=== PATIENT | male | born 1955 | race Caucasian/White ===

== ENCOUNTER 2024-03-25 14:54 | Inpatient (IN) | payer MEDICARE, OTHER ==
[~2024-03-25] VITALS: Ht 167.6 cm; Wt 70.6 kg
[~2024-03-25 14:54] MED LIST: ATEN-60; CEPH-510 PO; HYDR-3547
[2024-03-25 15:26] LABS: Basophils # (auto) 0 10 ^3/uL (0-0.2); Basophils % (auto) 0.2 % (0.0-2.0); Eosinophils # (auto) 0 10 ^3/uL (0-0.8); Hematocrit 41.8 % (41.0-53.0); Lymphocytes # (auto) 0.5 10 ^3/uL (0.4-5.4); Lymphocytes % (auto) 5.4 % (10.0-50.0); Mean Corpuscular Volume 99.9 fL (80.0-100.0); Monocytes # (auto) 0.7 10 ^3/uL (0-1.3); Monocytes % (auto) 7.7 % (0.0-12.0); Neutrophils # (auto) 8.3 10 ^3/uL (1.6-8.6); Neutrophils % (auto) 86.7 % (37.0-80.0); Nucleated Red Blood Cells % 0.2 %; Platelet Count (auto) 298 10^3/uL (140-450); Red Blood Cells 4.19 10^6/uL (4.5-5.90); Red Cell Distribution Width 18.3 % (11.8-14.3); White Blood Cell 9.5 10^3/uL (4.4-10.8)
[2024-03-25 15:32] VITALS: PULSE 63; RESP 15; O2SAT 90
[2024-03-25 15:46] LABS: Alanine Aminotransferase 131 U/L (7-40); Albumin 3.7 g/dL (3.2-4.8); Alkaline Phosphatase 127 U/L (46-116); Anion Gap 15 (5-15); Aspartate Aminotransferase 90 U/L (13-40); BUN/Creatinine Ratio 16.7 (10.0-20.0); Bilirubin, Total 0.3 mg/dL (0.2-1.0); Calcium 8.3 mg/dL (8.7-10.4); Carbon Dioxide 13 mmol/L (20-30); Chloride 109 mmol/L (98-107); Glucose 91 mg/dL (74-106); Potassium 5.2 mmol/L (3.5-5.1); Sodium 137 mmol/L (136-145); Total Protein 5.8 g/dL (5.7-8.2)
[2024-03-25 15:58] LABS: Blood Urea Nitrogen 99 mg/dL (9-23)
[2024-03-25] MEDS: InsuLIN REG 1unit/0.01ml Soln (100units/ml) IV ONE (16:15)
[2024-03-25] MEDS: SODIUM CHLORIDE 0.9% 1,000 ML IV ONE ×2 (16:15→16:25)
[2024-03-25] MEDS: DEXTROSE (50%) 50ML SYRG IV ONE (16:15)
[2024-03-25] MEDS: CALCIUM GLUC 1,000mg/50ml-NS 50 ML IV ONE (16:24)
[2024-03-25] MEDS: cefTRIAXone 1GM/50ML D5W 50 ML IV ONE ×2 (16:24→23:15)
[2024-03-25] MEDS: SODIUM ZIRCONIUM CYCL 10 GM PAK PO ONE (16:25)
[2024-03-25] MEDS: FUROSEMIDE 20 MG/2 ML VIAL IV ONE (16:25)
[2024-03-25] MEDS: ENOXAPARIN SOD 60 MG/0.6 ML SYRINGE SC ONE (16:25)
[2024-03-25] MEDS: SODIUM BICARB 8.4% 50Meq/50ml SYR INJ IV ONE (16:25)
[2024-03-25] MEDS: ALBUTEROL SULF 2.5 MG/0.5ML(0.5%) NEB SOLN NEB ONE (16:32)
[2024-03-25 17:20] LABS: Urine Bacteria None Seen /hpf (None Seen)
[2024-03-25 17:54] LABS: Urine Blood 3+ /uL (Negative); Urine Budding Yeast OCCASIONAL /hpf (None Seen); Urine Clarity Turbid (Clear); Urine Color Yellow (Yellow); Urine Protein, UAD 3+ (Negative); Urine Specific Gravity 1.015 (1.001-1.035); Urine Urobilinogen Normal (Negative); Urine WBC 591 /hpf (0 - 3); Urine WBC Clumps PRESENT /hpf (None Seen)
[2024-03-25 19:10] VITALS: PULSE 57; RESP 18; O2SAT 96
[2024-03-25] MEDS: METOPROLOL TARTRATE 25 MG TAB PO SCH (22:00)
[2024-03-25] MEDS ORDERED: NITROGLYCERIN 0.4 MG SL TAB SL PRN (22:00)
[2024-03-25] MEDS ORDERED: MORPHINE SULFATE INJ 2 MG/ml SYRG IV PRN (22:00)
[2024-03-25] MEDS: ATORVASTATIN 20 MG TAB PO SCH (23:14)
[2024-03-25] MEDS: ALBUMIN 5% 250 ML IV ONE (23:27)
[2024-03-25] MEDS ORDERED: ALBUMIN 5% 50 ML IV ONE (23:30)
[2024-03-26] VITALS (90 sets, daily range): BP systolic 63–145; BP diastolic 46–101; PULSE 51–74; RESP 14–25; TEMP 94.5–99.5; O2SAT 87–100
[2024-03-26] MEDS: DEXTROSE 50% SYRINGE 50 ML IV ONE (04:43)
[2024-03-26] MEDS ORDERED: DEXTROSE (50%) 50ML SYRG IV PRN (06:00)
[2024-03-26] MEDS: FUROSEMIDE 20 MG/2 ML VIAL IV SCH ×2 (06:09→08:46)
[2024-03-26] MEDS: ACCU-CHEK COMFORT CURVE STRIP VI SCH ×2 (06:17→23:50)
[2024-03-26 08:00] LABS: Basophils # (auto) 0 10 ^3/uL (0-0.2); Basophils % (auto) 0.1 % (0.0-2.0); Eosinophils # (auto) 0 10 ^3/uL (0-0.8); Hematocrit 44.1 % (41.0-53.0); Hemoglobin 13.8 g/dL (13.5-17.5); Lymphocytes # (auto) 0.5 10 ^3/uL (0.4-5.4); Lymphocytes % (auto) 3.9 % (10.0-50.0); Mean Corpuscular Hemoglobin 31.1 pg (28.0-32.0); Mean Corpuscular Hgb Conc. 31.2 g/dL (32.0-36.0); Mean Corpuscular Volume 99.6 fL (80.0-100.0); Monocytes # (auto) 0.7 10 ^3/uL (0-1.3); Neutrophils # (auto) 10.9 10 ^3/uL (1.6-8.6); Nucleated Red Blood Cells % 0.4 %; Platelet Count (auto) 324 10^3/uL (140-450); Red Blood Cells 4.43 10^6/uL (4.5-5.90); Red Cell Distribution Width 18.3 % (11.8-14.3); White Blood Cell 12.1 10^3/uL (4.4-10.8)
[2024-03-26 08:24] LABS: Alanine Aminotransferase 153 U/L (7-40); Alkaline Phosphatase 124 U/L (46-116); Anion Gap 14 (5-15); Aspartate Aminotransferase 99 U/L (13-40); BUN/Creatinine Ratio 16.5 (10.0-20.0); Calcium 8.6 mg/dL (8.7-10.4); Carbon Dioxide 17 mmol/L (20-30); Chloride 106 mmol/L (98-107); Glucose 170 mg/dL (74-106); Potassium 5.3 mmol/L (3.5-5.1); Sodium 137 mmol/L (136-145)
[2024-03-26 08:25] LABS: Bilirubin, Total 0.3 mg/dL (0.2-1.0); Total Protein 6.1 g/dL (5.7-8.2)
[2024-03-26 08:28] LABS: Blood Urea Nitrogen 108 mg/dL (9-23)
[2024-03-26] MEDS: ONDANSETRON HCL 4 MG/2 ML VIAL IV PRN (08:39)
[2024-03-26] MEDS: cefTRIAXone 1GM/50ML D5W 50 ML IV SCH (08:39)
[2024-03-26] MEDS: ETOMIDATE (2MG/ML) 20ML VIAL IV ONE ×2 (09:52→09:55)
[2024-03-26] MEDS: ROCURONIUM 10MG/ML 10ML VIAL IV ONE (09:52)
[2024-03-26] MEDS: SUCCINYLCHOLINE CHLORIDE 20 MG/ML 10ML VIAL IV ONE (09:53)
[2024-03-26] MEDS: amLODIPine BESYLATE 5 MG TAB PO SCH (10:00)
[2024-03-26] MEDS: MIDAZOLAM DRIP 50 mg/50mL 50 ML IV ONE (10:01)
[2024-03-26] MEDS: fentaNYL Drip 2500mCg/250mlNS 250 ML IV ONE (10:01)
[2024-03-26] MEDS: ASPirin 81 mg TAB PO SCH (12:01)
[2024-03-26 12:49] LABS: Base Excess -15.9 mmol/L (-2.0-3.0)
[2024-03-26] MEDS: SODIUM BICARB 8.4% 50Meq/50ml SYR Vial IV ONE (13:15)
[2024-03-26] MEDS: MIDAZOLAM DRIP 50 mg/50mL 50 ML IV SCH (13:26)
[2024-03-26] MEDS: fentaNYL Drip 2500mCg/250mlNS 250 ML IV SCH (13:49)
[2024-03-26 14:34] LABS: Base Excess -10.9 mmol/L (-2.0-3.0)
[2024-03-26] MEDS ORDERED: MEROPENEM 1GM IVPB 50 ML IV ONE (15:15)
[2024-03-26] MEDS: BUMETANIDE INJECTION 25 MG in GIVE UN-DILUTED 0 ML IV SCH (15:35)
[2024-03-26 16:58] LABS: INR 1.21 (0.9-1.15); Partial Thromboplastin Time 24.4 SEC (24.5-34.5); Prothrombin Time 12.6 sec (9.3-11.8)
[2024-03-26 17:54] LABS: Base Excess -10.3 mmol/L (-2.0-3.0)
[2024-03-26 18:21] LABS: Sodium Urine 93 mmol/L (40-220)
[2024-03-26 18:29] LABS: Amphetamine Screen, Urine Pos (NEGATIVE); Barbiturate Scree,Urine Neg (NEGATIVE); Benzodiazephine Screen, Urine Pos (NEGATIVE); Cocaine Screen, Urine Neg (NEGATIVE)
[2024-03-26 18:30] LABS: Cannabinoid Screen, Urine Neg (NEGATIVE); Creatinine, Urine 50.72 mg/dL (30.0-125.0); Opiate Scree,Urine Neg (NEGATIVE); Phencyclidine Screen, Urine Neg (NEGATIVE)
[2024-03-26 18:33] LABS: Protein, Urine 360.7 mg/dL (0.0-11.9)
[2024-03-26] MEDS: HEPARIN 1,000 UNITS/ml 1ML VIAL ONE (18:48)
[2024-03-26] MEDS: HEPARIN 1,000 UNITS/ml 1ML VIAL IV ONE (18:57)
[2024-03-26] MEDS: NOREPINEPHRINE 8 MG/250ML KIT 250 ML IV SCH (19:27)
[2024-03-26] MEDS: MEROPENEM 500MG IVPB 50 ML IV ONE (21:28)
[2024-03-26] MEDS: D5W 5% 250 ML IV SCH (21:33)
[2024-03-26] MEDS: HEPARIN SODIUM (PORCINE) 5000 UNITS/ML 1ML VIAL SC SCH (21:45)
[2024-03-26 21:57] LABS: Alanine Aminotransferase 161 U/L (7-40); Albumin 3.5 g/dL (3.2-4.8); Alkaline Phosphatase 116 U/L (46-116); Anion Gap 15 (5-15); Aspartate Aminotransferase 119 U/L (13-40); BUN/Creatinine Ratio 15.4 (10.0-20.0); Bilirubin, Total 0.4 mg/dL (0.2-1.0); Calcium 8.3 mg/dL (8.7-10.4); Carbon Dioxide 17 mmol/L (20-30); Chloride 108 mmol/L (98-107); Glucose 84 mg/dL (74-106); Potassium 5.3 mmol/L (3.5-5.1); Sodium 140 mmol/L (136-145); Total Protein 5.7 g/dL (5.7-8.2)
[2024-03-26] MEDS ORDERED: MEROPENEM 1GM IVPB 50 ML IV SCH (22:00)
[2024-03-26 22:08] LABS: Blood Urea Nitrogen 103 mg/dL (9-23)
[2024-03-26] MEDS: SODIUM ZIRCONIUM CYCL 10 GM PAK PO ONE (23:49)
[2024-03-27] VITALS (112 sets, daily range): BP systolic 67–161; BP diastolic 46–102; PULSE 55–108; RESP 10–20; TEMP 97–99.3; O2SAT 88–100
[2024-03-27] MEDS: InsuLIN REG 1unit/0.01ml Soln (100units/ml) SC SCH
[2024-03-27 04:37] LABS: Basophils # (auto) 0 10 ^3/uL (0-0.2); Basophils % (auto) 0.4 % (0.0-2.0); Eosinophils # (auto) 0.1 10 ^3/uL (0-0.8); Hematocrit 42.3 % (41.0-53.0); Hemoglobin 13.8 g/dL (13.5-17.5); Lymphocytes # (auto) 0.7 10 ^3/uL (0.4-5.4); Lymphocytes % (auto) 6.5 % (10.0-50.0); Mean Corpuscular Hemoglobin 30.7 pg (28.0-32.0); Mean Corpuscular Hgb Conc. 32.7 g/dL (32.0-36.0); Mean Corpuscular Volume 93.9 fL (80.0-100.0); Monocytes % (auto) 9.3 % (0.0-12.0); Neutrophils # (auto) 9.2 10 ^3/uL (1.6-8.6); Neutrophils % (auto) 82.8 % (37.0-80.0); Nucleated Red Blood Cells % 0.7 %; Platelet Count (auto) 265 10^3/uL (140-450); Red Cell Distribution Width 17.2 % (11.8-14.3); White Blood Cell 11.1 10^3/uL (4.4-10.8)
[2024-03-27 04:49] LABS: Alanine Aminotransferase 141 U/L (7-40); Albumin 3.1 g/dL (3.2-4.8); Alkaline Phosphatase 102 U/L (46-116); Anion Gap 13 (5-15); Aspartate Aminotransferase 86 U/L (13-40); BUN/Creatinine Ratio 17.2 (10.0-20.0); Bilirubin, Total 0.3 mg/dL (0.2-1.0); Calcium 7.7 mg/dL (8.7-10.4); Carbon Dioxide 17 mmol/L (20-30); Chloride 107 mmol/L (98-107); Glucose 97 mg/dL (74-106); Magnesium 2.3 mg/dL (1.6-2.6); Sodium 137 mmol/L (136-145); Total Protein 5.1 g/dL (5.7-8.2)
[2024-03-27 05:17] LABS: Blood Urea Nitrogen 117 mg/dL (9-23)
[2024-03-27 07:01] LABS: Base Excess -10.9 mmol/L (-2.0-3.0)
[2024-03-27] MEDS: VASOPRESSIN 20 UNITS in SODIUM CHL 0.9% 99 ML IV SCH (08:22)
[2024-03-27] MEDS ORDERED: Nepro With Carb Steady 1 Liter Bottle GT SCH (08:30)
[2024-03-27] MEDS: D5W 5% 250 ML IV SCH (09:45)
[2024-03-27] MEDS: PANTOPRAZOLE 40 MG/10 ML VIAL INJ IV SCH (09:49)
[2024-03-27] MEDS: ASPirin 81 mg TAB PO SCH (09:50)
[2024-03-27] MEDS: ALBUMIN 25% 100 ML IV PRN (10:02)
[2024-03-27] MEDS: SODIUM CHL 0.9% 1000 ML BAG XX ONE (10:03)
[2024-03-27] MEDS: MEROPENEM 500MG IVPB 50 ML IV SCH (11:09)
[2024-03-27] MEDS: IOHEXOL 350 MG/ML 100ML IJ ONE (13:36)
[2024-03-28] VITALS (116 sets, daily range): BP systolic 73–160; BP diastolic 42–115; PULSE 61–79; RESP 15–23; TEMP 97.5–99.3; O2SAT 89–100
[2024-03-28 03:18] LABS: Chloride 106 mmol/L (98-107); Potassium 4.7 mmol/L (3.5-5.1); Sodium 135 mmol/L (136-145)
[2024-03-28 03:19] LABS: Anion Gap 11 (5-15); Calcium 7.5 mg/dL (8.7-10.4); Carbon Dioxide 18 mmol/L (20-30)
[2024-03-28 03:24] LABS: BUN/Creatinine Ratio 12.4 (10.0-20.0); Blood Urea Nitrogen 79 mg/dL (9-23); Glucose 92 mg/dL (74-106); Magnesium 2.2 mg/dL (1.6-2.6)
[2024-03-28 03:41] LABS: Basophils # (auto) 0 10 ^3/uL (0-0.2); Basophils % (auto) 0.2 % (0.0-2.0); Eosinophils # (auto) 0 10 ^3/uL (0-0.8); Eosinophils % (auto) 0.4 % (0.0-7.0); Hematocrit 42.3 % (41.0-53.0); Lymphocytes # (auto) 0.6 10 ^3/uL (0.4-5.4); Lymphocytes % (auto) 4.7 % (10.0-50.0); Mean Corpuscular Hemoglobin 30.3 pg (28.0-32.0); Mean Corpuscular Hgb Conc. 30.7 g/dL (32.0-36.0); Mean Corpuscular Volume 98.7 fL (80.0-100.0); Monocytes # (auto) 1.6 10 ^3/uL (0-1.3); Monocytes % (auto) 13.5 % (0.0-12.0); Neutrophils # (auto) 9.8 10 ^3/uL (1.6-8.6); Neutrophils % (auto) 81.2 % (37.0-80.0); Nucleated Red Blood Cells % 0.2 %; Platelet Count (auto) 147 10^3/uL (140-450); Red Blood Cells 4.29 10^6/uL (4.5-5.90); Red Cell Distribution Width 19.1 % (11.8-14.3)
[2024-03-28 07:38] LABS: COVID19 ANTIGEN SOFIA FIA NEGATIVE (NEGATIVE); Rapid Influenza A Negative (Negative); Rapid Influenza B Negative (Negative)
[2024-03-28 07:58] LABS: Base Excess -9.8 mmol/L (-2.0-3.0)
[2024-03-28] MEDS: DOCUSATE ORAL LIQUID 100 MG/10 ML UD GT SCH (09:20)
[2024-03-28] MEDS: SODIUM CHL 0.9% 1000 ML BAG XX ONE (11:30)
[2024-03-28] MEDS: SODIUM BICARB 8.4% 50Meq/50ml SYR Vial IV ONE (17:23)
[2024-03-29] VITALS (119 sets, daily range): BP systolic 70–179; BP diastolic 42–110; PULSE 55–102; RESP 19–24; TEMP 97.2–99.1; O2SAT 89–100
[2024-03-29 04:52] LABS: Alanine Aminotransferase 81 U/L (7-40); Albumin 3.2 g/dL (3.2-4.8); Alkaline Phosphatase 72 U/L (46-116); Anion Gap 12 (5-15); Aspartate Aminotransferase 36 U/L (13-40); BUN/Creatinine Ratio 9.6 (10.0-20.0); Carbon Dioxide 21 mmol/L (20-30); Chloride 104 mmol/L (98-107); Glucose 74 mg/dL (74-106); Magnesium 2.3 mg/dL (1.6-2.6); Potassium 3.7 mmol/L (3.5-5.1); Sodium 137 mmol/L (136-145)
[2024-03-29 04:53] LABS: Blood Urea Nitrogen 52 mg/dL (9-23)
[2024-03-29 04:54] LABS: Bilirubin, Total 0.5 mg/dL (0.2-1.0)
[2024-03-29 06:43] LABS: Base Excess 0.9 mmol/L (-2.0-3.0)
[2024-03-29] MEDS ORDERED: NOREPINEPHRINE 8 MG/250ML KIT 250 ML IV SCH (08:45)
[2024-03-29 09:08] LABS: Basophils # (auto) 0 10 ^3/uL (0-0.2); Basophils % (auto) 0.8 % (0.0-2.0); Eosinophils # (auto) 0.2 10 ^3/uL (0-0.8); Eosinophils % (auto) 3.6 % (0.0-7.0); Hematocrit 31.8 % (41.0-53.0); Hemoglobin 10.5 g/dL (13.5-17.5); Lymphocytes # (auto) 0.5 10 ^3/uL (0.4-5.4); Lymphocytes % (auto) 10.5 % (10.0-50.0); Mean Corpuscular Hemoglobin 30.4 pg (28.0-32.0); Mean Corpuscular Hgb Conc. 33.1 g/dL (32.0-36.0); Mean Corpuscular Volume 91.6 fL (80.0-100.0); Monocytes # (auto) 0.7 10 ^3/uL (0-1.3); Monocytes % (auto) 14.2 % (0.0-12.0); Neutrophils # (auto) 3.4 10 ^3/uL (1.6-8.6); Neutrophils % (auto) 70.9 % (37.0-80.0); Nucleated Red Blood Cells % 0.2 %; Platelet Count (auto) 110 10^3/uL (140-450); Red Blood Cells 3.47 10^6/uL (4.5-5.90); Red Cell Distribution Width 16.6 % (11.8-14.3); White Blood Cell 4.9 10^3/uL (4.4-10.8)
[2024-03-29 09:08] LABS: Hepatitis B Surface Antigen Negative (Negative)
[2024-03-29] MEDS: NOREPINEPHRINE 8 MG/250ML KIT 250 ML IV SCH (09:15)
[2024-03-29 09:28] LABS: Hepatitis A Ab IgM Negative; Hepatitis B Core IgM Negative
[2024-03-29] MEDS: DEXTROSE 10% 1,000 ML IV SCH (09:36)
[2024-03-29 12:06] LABS: Hepatitis A Ab IgM Negative; Hepatitis A Total Antibody Positive (Negative); Hepatitis B Core IgM Negative; Hepatitis B Surface Antibody Negative (Negative); Hepatitis B Surface Antigen Negative (Negative); Hepatitis C Antibody Negative (Negative)
[2024-03-29 12:49] LABS: Hepatitis B Core Total AB Negative (Negative)
[2024-03-29 12:53] LABS: Hepatitis C Antibody Negative (Negative)
[2024-03-29] MEDS: METOCLOPRAMIDE HCL 5MG/ml INJ 2ml VIAL IV ONE (18:06)
[2024-03-29] MEDS: METOCLOPRAMIDE HCL 5MG/ml INJ 2ml VIAL IV SCH (22:07)
[2024-03-30] VITALS (100 sets, daily range): BP systolic 82–164; BP diastolic 53–106; PULSE 59–77; RESP 19–22; TEMP 97.9–99; O2SAT 88–100
[2024-03-30 04:12] LABS: Basophils # (auto) 0 10 ^3/uL (0-0.2); Basophils % (auto) 0.9 % (0.0-2.0); Eosinophils # (auto) 0.2 10 ^3/uL (0-0.8); Eosinophils % (auto) 4.3 % (0.0-7.0); Hematocrit 32.3 % (41.0-53.0); Hemoglobin 10.9 g/dL (13.5-17.5); Lymphocytes # (auto) 0.5 10 ^3/uL (0.4-5.4); Lymphocytes % (auto) 9.8 % (10.0-50.0); Mean Corpuscular Hemoglobin 30.5 pg (28.0-32.0); Mean Corpuscular Hgb Conc. 33.8 g/dL (32.0-36.0); Mean Corpuscular Volume 90.3 fL (80.0-100.0); Monocytes # (auto) 0.7 10 ^3/uL (0-1.3); Monocytes % (auto) 12.8 % (0.0-12.0); Neutrophils # (auto) 3.7 10 ^3/uL (1.6-8.6); Neutrophils % (auto) 72.2 % (37.0-80.0); Nucleated Red Blood Cells % 0.1 %; Platelet Count (auto) 116 10^3/uL (140-450); Red Blood Cells 3.58 10^6/uL (4.5-5.90); Red Cell Distribution Width 16.2 % (11.8-14.3); White Blood Cell 5.1 10^3/uL (4.4-10.8)
[2024-03-30 04:44] LABS: Anion Gap 11 (5-15); Carbon Dioxide 25 mmol/L (20-30); Chloride 103 mmol/L (98-107); Potassium 3.2 mmol/L (3.5-5.1); Sodium 139 mmol/L (136-145)
[2024-03-30 04:45] LABS: Calcium 8.3 mg/dL (8.7-10.4)
[2024-03-30 04:50] LABS: BUN/Creatinine Ratio 13.1 (10.0-20.0); Glucose 80 mg/dL (74-106)
[2024-03-30 05:00] LABS: Blood Urea Nitrogen 76 mg/dL (9-23)
[2024-03-30] MEDS: SODIUM CHL 0.9% 1000 ML BAG XX ONE (07:00)
[2024-03-30] MEDS: POTASSIUM CHL 20MEQ/100ML 100 ML IV SCH (08:00)
[2024-03-30 08:40] LABS: Base Excess -1.5 mmol/L (-2.0-3.0)
[2024-03-30] MEDS: ERTAPENEM SOD INJ 0.5 GM in SODIUM CHL 0.9% 50 ML IV SCH (10:00)
[2024-03-30] MEDS ORDERED: ARGATROBAN 250 MG in SODIUM CHL 0.9% 248.5 ML IV SCH (18:45)
[2024-03-30 20:31] LABS: INR 1.03 (0.9-1.15); Partial Thromboplastin Time 34.5 SEC (24.5-34.5); Prothrombin Time 10.9 sec (9.3-11.8)
[2024-03-30] MEDS: ARGATROBAN 250 MG in SODIUM CHL 0.9% 248.5 ML IV SCH (21:01)
[2024-03-30] MEDS: EPOETIN ALFA-EPBX 10,000 UNIT/1ML VIAL SC ONE (21:05)
[2024-03-31] VITALS (112 sets, daily range): BP systolic 83–156; BP diastolic 48–96; PULSE 53–98; RESP 17–22; TEMP 96.8–98.8; O2SAT 97–100
[2024-03-31 02:45] LABS: INR 1.56 (0.9-1.15); Partial Thromboplastin Time 68.6 SEC (24.5-34.5)
[2024-03-31] MEDS: ARGATROBAN 250 MG in SODIUM CHL 0.9% 248.5 ML IV SCH ×2 (03:30→20:52)
[2024-03-31 03:51] LABS: Basophils # (auto) 0 10 ^3/uL (0-0.2); Basophils % (auto) 0.7 % (0.0-2.0); Eosinophils # (auto) 0.3 10 ^3/uL (0-0.8); Eosinophils % (auto) 5.1 % (0.0-7.0); Hematocrit 35.7 % (41.0-53.0); Hemoglobin 11.5 g/dL (13.5-17.5); Lymphocytes # (auto) 0.7 10 ^3/uL (0.4-5.4); Lymphocytes % (auto) 11.5 % (10.0-50.0); Mean Corpuscular Hemoglobin 30.2 pg (28.0-32.0); Mean Corpuscular Hgb Conc. 32.2 g/dL (32.0-36.0); Monocytes # (auto) 0.9 10 ^3/uL (0-1.3); Monocytes % (auto) 14.2 % (0.0-12.0); Neutrophils # (auto) 4.1 10 ^3/uL (1.6-8.6); Neutrophils % (auto) 68.5 % (37.0-80.0); Nucleated Red Blood Cells % 0.1 %; Platelet Count (auto) 95 10^3/uL (140-450); Red Cell Distribution Width 17.1 % (11.8-14.3)
[2024-03-31 04:07] LABS: Alanine Aminotransferase 70 U/L (7-40); Albumin 3.7 g/dL (3.2-4.8); Alkaline Phosphatase 78 U/L (46-116); Aspartate Aminotransferase 30 U/L (13-40); Chloride 102 mmol/L (98-107); Sodium 137 mmol/L (136-145)
[2024-03-31 04:08] LABS: Bilirubin, Total 0.6 mg/dL (0.2-1.0); Total Protein 5.7 g/dL (5.7-8.2)
[2024-03-31 04:09] LABS: Anion Gap 12 (5-15); Carbon Dioxide 23 mmol/L (20-30)
[2024-03-31 04:14] LABS: BUN/Creatinine Ratio 9.5 (10.0-20.0); Glucose 96 mg/dL (74-106)
[2024-03-31 04:20] LABS: Calcium 8.8 mg/dL (8.7-10.4)
[2024-03-31 04:39] LABS: Blood Urea Nitrogen 47 mg/dL (9-23)
[2024-03-31 06:43] LABS: Base Excess 1.4 mmol/L (-2.0-3.0)
[2024-03-31 07:25] LABS: INR 2.46 (0.9-1.15); Prothrombin Time 24.4 sec (9.3-11.8)
[2024-03-31] MEDS: POTASSIUM CHL 20MEQ/100ML 100 ML IV SCH (07:55)
[2024-03-31 08:07] LABS: Partial Thromboplastin Time 82.1 SEC (24.5-34.5)
[2024-03-31 12:19] LABS: INR 3.09 (0.9-1.15); Prothrombin Time 30.1 sec (9.3-11.8)
[2024-03-31 12:22] LABS: Partial Thromboplastin Time 89.5 SEC (24.5-34.5)
[2024-03-31 15:13] LABS: Chloride 103 mmol/L (98-107); Potassium 3.4 mmol/L (3.5-5.1); Sodium 138 mmol/L (136-145)
[2024-03-31 15:14] LABS: Anion Gap 10 (5-15); Carbon Dioxide 25 mmol/L (20-30)
[2024-03-31 15:15] LABS: Calcium 8.6 mg/dL (8.7-10.4)
[2024-03-31 15:19] LABS: Glucose 73 mg/dL (74-106)
[2024-03-31 15:20] LABS: BUN/Creatinine Ratio 9.9 (10.0-20.0); Blood Urea Nitrogen 51 mg/dL (9-23)
[2024-03-31 15:31] LABS: INR 3.47 (0.9-1.15); Prothrombin Time 33.5 sec (9.3-11.8)
[2024-03-31 15:33] LABS: Partial Thromboplastin Time 83.2 SEC (24.5-34.5)
[2024-03-31] MEDS: POTASSIUM CHL 20MEQ/100ML 100 ML IV ONE (16:27)
[2024-03-31 19:21] LABS: INR 3.61 (0.9-1.15); Prothrombin Time 34.8 sec (9.3-11.8)
[2024-03-31 19:22] LABS: Partial Thromboplastin Time 93.3 SEC (24.5-34.5)
[2024-03-31 23:50] LABS: INR 3.31 (0.9-1.15); Prothrombin Time 32.1 sec (9.3-11.8)
[2024-03-31 23:52] LABS: Partial Thromboplastin Time 88.8 SEC (24.5-34.5)
[2024-04-01] VITALS (118 sets, daily range): BP systolic 74–173; BP diastolic 45–105; PULSE 60–101; RESP 17–27; TEMP 98.2–99.7; O2SAT 93–100
[2024-04-01 04:15] LABS: Anion Gap 9 (5-15); Carbon Dioxide 26 mmol/L (20-30); Chloride 103 mmol/L (98-107); Potassium 3.7 mmol/L (3.5-5.1); Sodium 138 mmol/L (136-145)
[2024-04-01 04:17] LABS: Calcium 8.7 mg/dL (8.7-10.4)
[2024-04-01 04:21] LABS: Blood Urea Nitrogen 55 mg/dL (9-23); Glucose 80 mg/dL (74-106)
[2024-04-01 04:39] LABS: Mean Corpuscular Hgb Conc. 32.4 g/dL (32.0-36.0); Mean Corpuscular Volume 92.8 fL (80.0-100.0); Platelet Count (auto) 96 10^3/uL (140-450); Red Blood Cells 3.34 10^6/uL (4.5-5.90); Red Cell Distribution Width 16.4 % (11.8-14.3); White Blood Cell 5.8 10^3/uL (4.4-10.8)
[2024-04-01 04:42] LABS: Band Neutrophils % (manual) 0; Basophils % (manual) 0 (0.0-2.0); Blast Cells 0; Metamyelocytes % 0; Myelocytes % 0; Promyelocytes % 0; Reactive Lymphocytes 0
[2024-04-01 04:54] LABS: Magnesium 1.9 mg/dL (1.6-2.6)
[2024-04-01 04:58] LABS: INR 3.1 (0.9-1.15); Prothrombin Time 30.2 sec (9.3-11.8)
[2024-04-01 05:11] LABS: Eosinophils % (manual) 5 (0-7); Lymphocytes % (manual) 18 (10.0-50.0); Monocytes % (manual) 9 (0-12)
[2024-04-01 05:12] LABS: Platelet Estimate Decreased
[2024-04-01 05:23] LABS: Partial Thromboplastin Time 83.3 SEC (24.5-34.5)
[2024-04-01 07:07] LABS: Base Excess 0.6 mmol/L (-2.0-3.0)
[2024-04-01] MEDS: DEXTROSE (50%) 50ML SYRG IV PRN (07:58)
[2024-04-01 09:34] LABS: INR 2.79 (0.9-1.15); Partial Thromboplastin Time 59.6 SEC (24.5-34.5); Prothrombin Time 27.4 sec (9.3-11.8)
[2024-04-01 14:52] LABS: INR 2.82 (0.9-1.15); Prothrombin Time 27.7 sec (9.3-11.8)
[2024-04-01 14:56] LABS: Partial Thromboplastin Time 78.9 SEC (24.5-34.5)
[2024-04-01] MEDS: ARGATROBAN 250 MG in SODIUM CHL 0.9% 248.5 ML IV SCH ×2 (18:30→22:00)
[2024-04-01 19:39] LABS: INR 2.83 (0.9-1.15); Prothrombin Time 27.8 sec (9.3-11.8)
[2024-04-01 19:40] LABS: Partial Thromboplastin Time 72.9 SEC (24.5-34.5)
[2024-04-01 21:07] LABS: Partial Thromboplastin Time 68.8 SEC (24.5-34.5)
[2024-04-01 21:08] LABS: INR 2.84 (0.9-1.15); Prothrombin Time 27.9 sec (9.3-11.8)
[2024-04-02] VITALS (114 sets, daily range): BP systolic 72–200; BP diastolic 50–115; PULSE 58–123; RESP 17–30; TEMP 97.3–99.1; O2SAT 87–100
[2024-04-02 01:13] LABS: INR 2.98 (0.9-1.15); Prothrombin Time 29.1 sec (9.3-11.8)
[2024-04-02 01:17] LABS: Partial Thromboplastin Time 71.6 SEC (24.5-34.5)
[2024-04-02 02:48] LABS: Basophils # (auto) 0.1 10 ^3/uL (0-0.2); Basophils % (auto) 0.7 % (0.0-2.0); Eosinophils # (auto) 0.2 10 ^3/uL (0-0.8); Eosinophils % (auto) 3.2 % (0.0-7.0); Hemoglobin 10.8 g/dL (13.5-17.5); Lymphocytes # (auto) 0.8 10 ^3/uL (0.4-5.4); Lymphocytes % (auto) 10.7 % (10.0-50.0); Mean Corpuscular Hemoglobin 30.5 pg (28.0-32.0); Mean Corpuscular Hgb Conc. 32.7 g/dL (32.0-36.0); Mean Corpuscular Volume 93.1 fL (80.0-100.0); Monocytes # (auto) 1.4 10 ^3/uL (0-1.3); Monocytes % (auto) 17.9 % (0.0-12.0); Neutrophils # (auto) 5.2 10 ^3/uL (1.6-8.6); Neutrophils % (auto) 67.5 % (37.0-80.0); Platelet Count (auto) 103 10^3/uL (140-450); Red Blood Cells 3.54 10^6/uL (4.5-5.90); Red Cell Distribution Width 16.2 % (11.8-14.3); White Blood Cell 7.6 10^3/uL (4.4-10.8)
[2024-04-02 03:18] LABS: INR 3.2 (0.9-1.15); Prothrombin Time 31.1 sec (9.3-11.8)
[2024-04-02 03:30] LABS: Partial Thromboplastin Time 76.3 SEC (24.5-34.5)
[2024-04-02 07:24] LABS: Base Excess 0.3 mmol/L (-2.0-3.0)
[2024-04-02] MEDS: SODIUM CHL 0.9% 1000 ML BAG XX ONE (07:45)
[2024-04-02 08:08] LABS: Alanine Aminotransferase 46 U/L (7-40); Albumin 3.4 g/dL (3.2-4.8); Alkaline Phosphatase 89 U/L (46-116); Anion Gap 15 (5-15); Aspartate Aminotransferase 28 U/L (13-40); BUN/Creatinine Ratio 12.2 (10.0-20.0); Calcium 8.8 mg/dL (8.7-10.4); Carbon Dioxide 24 mmol/L (20-30); Chloride 104 mmol/L (98-107); Glucose 86 mg/dL (74-106); Potassium 3.6 mmol/L (3.5-5.1); Sodium 143 mmol/L (136-145)
[2024-04-02 08:09] LABS: Bilirubin, Total 0.4 mg/dL (0.2-1.0); Total Protein 5.2 g/dL (5.7-8.2)
[2024-04-02 08:10] LABS: Blood Urea Nitrogen 74 mg/dL (9-23)
[2024-04-02 08:11] LABS: Prothrombin Time 34.4 sec (9.3-11.8)
[2024-04-02 08:12] LABS: INR 3.57 (0.9-1.15)
[2024-04-02] MEDS: ARGATROBAN 250 MG in SODIUM CHL 0.9% 248.5 ML IV SCH ×2 (12:00→20:00)
[2024-04-02 12:34] LABS: Prothrombin Time 35.5 sec (9.3-11.8)
[2024-04-02 12:35] LABS: INR 3.69 (0.9-1.15)
[2024-04-02] MEDS: Pro-Stat SF 30ml Vanilla PO SCH (16:21)
[2024-04-02 16:53] LABS: Chloride 104 mmol/L (98-107); Potassium 3.1 mmol/L (3.5-5.1); Sodium 144 mmol/L (136-145)
[2024-04-02 16:54] LABS: Anion Gap 9 (5-15); Carbon Dioxide 31 mmol/L (20-30)
[2024-04-02 16:55] LABS: Calcium 8.9 mg/dL (8.7-10.4)
[2024-04-02 16:59] LABS: BUN/Creatinine Ratio 9.9 (10.0-20.0); Glucose 82 mg/dL (74-106)
[2024-04-02 17:10] LABS: Blood Urea Nitrogen 41 mg/dL (9-23)
[2024-04-02 17:15] LABS: INR 3.86 (0.9-1.15)
[2024-04-02 17:20] LABS: Partial Thromboplastin Time 91.5 SEC (24.5-34.5)
[2024-04-02] MEDS: LACTULOSE 20Gm/30ML SOLN PO ONE (17:45)
[2024-04-02] MEDS: FUROSEMIDE 20 MG/2 ML VIAL IV SCH (18:43)
[2024-04-02] MEDS: NOREPINEPHRINE 8 MG/250ML KIT 250 ML IV SCH (19:45)
[2024-04-02] MEDS: POTASSIUM CHL 20MEQ/100ML 100 ML IV SCH (20:26)
[2024-04-02] MEDS: EPOETIN ALFA-EPBX 10,000 UNIT/1ML VIAL SC ONE (20:30)
[2024-04-02 20:46] LABS: INR 2.99 (0.9-1.15); Prothrombin Time 29.2 sec (9.3-11.8)
[2024-04-02] MEDS: LACTULOSE 20Gm/30ML SOLN PO SCH (23:35)
[2024-04-03] VITALS (146 sets, daily range): BP systolic 51–171; BP diastolic 33–114; PULSE 51–151; RESP 13–29; TEMP 97.1–99.3; O2SAT 93–100
[2024-04-03 04:29] LABS: Alanine Aminotransferase 40 U/L (7-40); Alkaline Phosphatase 105 U/L (46-116); Anion Gap 10 (5-15); Aspartate Aminotransferase 24 U/L (13-40); BUN/Creatinine Ratio 9.1 (10.0-20.0); Blood Urea Nitrogen 43 mg/dL (9-23); Calcium 9.5 mg/dL (8.7-10.4); Carbon Dioxide 29 mmol/L (20-30); Chloride 104 mmol/L (98-107); Glucose 84 mg/dL (74-106); Potassium 3.9 mmol/L (3.5-5.1); Sodium 143 mmol/L (136-145)
[2024-04-03 04:30] LABS: Albumin 3.8 g/dL (3.2-4.8)
[2024-04-03 04:31] LABS: Bilirubin, Total 0.5 mg/dL (0.2-1.0)
[2024-04-03 05:07] LABS: Hematocrit 32.2 % (41.0-53.0); Hemoglobin 10.6 g/dL (13.5-17.5); Mean Corpuscular Hemoglobin 30.2 pg (28.0-32.0); Mean Corpuscular Hgb Conc. 32.9 g/dL (32.0-36.0); Mean Corpuscular Volume 91.9 fL (80.0-100.0); Platelet Count (auto) 114 10^3/uL (140-450); Red Blood Cells 3.51 10^6/uL (4.5-5.90); White Blood Cell 7.6 10^3/uL (4.4-10.8)
[2024-04-03 05:15] LABS: Basophils % (manual) 0 (0.0-2.0); Blast Cells 0; Myelocytes % 0; Promyelocytes % 0; Reactive Lymphocytes 0
[2024-04-03 07:34] LABS: Base Excess 2.8 mmol/L (-2.0-3.0)
[2024-04-03 08:33] LABS: Band Neutrophils % (manual) 13; Eosinophils % (manual) 2 (0-7); Lymphocytes % (manual) 19 (10.0-50.0); Metamyelocytes % 1; Monocytes % (manual) 4 (0-12); Platelet Estimate Decreased
[2024-04-03] MEDS: AMIODARONE 450mg/250ml AE 250 ML IV SCH ×2 (09:52→16:46)
[2024-04-03] MEDS: Nepro With Carb Steady 1 Liter Bottle GT SCH (10:02)
[2024-04-03] MEDS: ARGATROBAN 250 MG in SODIUM CHL 0.9% 248.5 ML IV SCH ×2 (10:15→21:00)
[2024-04-03] MEDS: LIDOCAINE 1% (LOCAL ANESTH.) PF 5ml SDV ID ONE (12:29)
[2024-04-03 15:17] LABS: INR 2.59 (0.9-1.15); Prothrombin Time 25.6 sec (9.3-11.8)
[2024-04-03 15:35] LABS: Partial Thromboplastin Time 74.3 SEC (24.5-34.5)
[2024-04-03] MEDS: SODIUM CHLOR 0.9% PF (SALINE LOCK) 10ML VIAL/SYR IV SCH (22:00)
[2024-04-04] VITALS (117 sets, daily range): BP systolic 62–156; BP diastolic 24–107; PULSE 52–72; RESP 17–22; TEMP 96.8–98.8; O2SAT 96–100
[2024-04-04] MEDS: D5W 5% 1,000 ML IV SCH (01:30)
[2024-04-04 04:45] LABS: Hematocrit 30.9 % (41.0-53.0); Mean Corpuscular Hemoglobin 29.9 pg (28.0-32.0); Mean Corpuscular Hgb Conc. 32.2 g/dL (32.0-36.0); Mean Corpuscular Volume 92.9 fL (80.0-100.0); Platelet Count (auto) 140 10^3/uL (140-450); Red Blood Cells 3.33 10^6/uL (4.5-5.90); Red Cell Distribution Width 15.7 % (11.8-14.3); White Blood Cell 6.6 10^3/uL (4.4-10.8)
[2024-04-04 04:47] LABS: Alanine Aminotransferase 27 U/L (7-40); Albumin 3.6 g/dL (3.2-4.8); Alkaline Phosphatase 88 U/L (46-116); Anion Gap 6 (5-15); Aspartate Aminotransferase 16 U/L (13-40); BUN/Creatinine Ratio 11.4 (10.0-20.0); Bilirubin, Total 0.5 mg/dL (0.2-1.0); Calcium 9.4 mg/dL (8.7-10.4); Carbon Dioxide 30 mmol/L (20-30); Chloride 107 mmol/L (98-107); Glucose 77 mg/dL (74-106); Magnesium 2.1 mg/dL (1.6-2.6); Potassium 3.4 mmol/L (3.5-5.1); Sodium 143 mmol/L (136-145); Total Protein 5.5 g/dL (5.7-8.2)
[2024-04-04 04:49] LABS: Basophils % (manual) 0 (0.0-2.0); Blast Cells 0; Blood Urea Nitrogen 59 mg/dL (9-23); Metamyelocytes % 0; Promyelocytes % 0; Reactive Lymphocytes 0
[2024-04-04 05:28] LABS: INR 3.11 (0.9-1.15); Prothrombin Time 30.3 sec (9.3-11.8)
[2024-04-04 05:29] LABS: Partial Thromboplastin Time 83.1 SEC (24.5-34.5)
[2024-04-04 05:33] LABS: Anisocytosis Slight; Band Neutrophils % (manual) 1; Eosinophils % (manual) 4 (0-7); Lymphocytes % (manual) 14 (10.0-50.0); Monocytes % (manual) 4 (0-12); Myelocytes % 1; Platelet Estimate Adequate
[2024-04-04 05:34] LABS: Large Platelets FEW
[2024-04-04] MEDS: POTASSIUM CHL 20MEQ/100ML 100 ML IV ONE (06:42)
[2024-04-04 09:53] LABS: Base Excess -1.4 mmol/L (-2.0-3.0)
[2024-04-04 11:46] LABS: INR 3.31 (0.9-1.15); Prothrombin Time 32.1 sec (9.3-11.8)
[2024-04-04 11:48] LABS: Partial Thromboplastin Time 85.6 SEC (24.5-34.5)
[2024-04-04 16:02] LABS: INR 2.88 (0.9-1.15); Prothrombin Time 28.2 sec (9.3-11.8)
[2024-04-04 16:04] LABS: Partial Thromboplastin Time 81.7 SEC (24.5-34.5)
[2024-04-04] MEDS: fentaNYL Drip 2500mCg/250mlNS 250 ML IV SCH (18:07)
[2024-04-04] MEDS: SODIUM CHL 0.9% 1000 ML BAG XX ONE (19:54)
[2024-04-05] VITALS (106 sets, daily range): BP systolic 88–198; BP diastolic 26–140; PULSE 46–107; RESP 17–30; TEMP 97.8–98.9; O2SAT 94–100
[2024-04-05 04:29] LABS: Hemoglobin 9.6 g/dL (13.5-17.5); Mean Corpuscular Hemoglobin 30.7 pg (28.0-32.0); Mean Corpuscular Volume 92.9 fL (80.0-100.0); Platelet Count (auto) 149 10^3/uL (140-450); Red Blood Cells 3.13 10^6/uL (4.5-5.90); Red Cell Distribution Width 15.6 % (11.8-14.3)
[2024-04-05 04:34] LABS: Anion Gap 8 (5-15); Calcium 9.2 mg/dL (8.7-10.4); Carbon Dioxide 28 mmol/L (20-30); Chloride 102 mmol/L (98-107); Potassium 3.8 mmol/L (3.5-5.1); Sodium 138 mmol/L (136-145)
[2024-04-05 04:40] LABS: BUN/Creatinine Ratio 9.5 (10.0-20.0); Glucose 93 mg/dL (74-106)
[2024-04-05 04:42] LABS: Basophils % (manual) 0 (0.0-2.0); Blast Cells 0; Metamyelocytes % 0; Phosphorus 4.4 mg/dL (2.4-5.1); Promyelocytes % 0; Reactive Lymphocytes 0
[2024-04-05 04:43] LABS: Blood Urea Nitrogen 42 mg/dL (9-23)
[2024-04-05 04:59] LABS: INR 3.08 (0.9-1.15)
[2024-04-05 06:33] LABS: Band Neutrophils % (manual) 2; Eosinophils % (manual) 7 (0-7); Lymphocytes % (manual) 22 (10.0-50.0); Monocytes % (manual) 12 (0-12); Myelocytes % 1
[2024-04-05 06:34] LABS: Anisocytosis Slight; Large Platelets FEW; Platelet Estimate Adequate
[2024-04-05 07:15] LABS: Base Excess -0.4 mmol/L (-2.0-3.0)
[2024-04-06] VITALS (81 sets, daily range): BP systolic 85–233; BP diastolic 26–110; PULSE 43–112; RESP 10–31; TEMP 96.4–97.8; O2SAT 66–100
[2024-04-06 04:39] LABS: Basophils # (auto) 0.1 10 ^3/uL (0-0.2); Basophils % (auto) 1.1 % (0.0-2.0); Eosinophils # (auto) 0.3 10 ^3/uL (0-0.8); Eosinophils % (auto) 4.3 % (0.0-7.0); Hematocrit 28.2 % (41.0-53.0); Hemoglobin 9.4 g/dL (13.5-17.5); Lymphocytes # (auto) 1.4 10 ^3/uL (0.4-5.4); Lymphocytes % (auto) 24.5 % (10.0-50.0); Mean Corpuscular Hemoglobin 30.6 pg (28.0-32.0); Mean Corpuscular Hgb Conc. 33.4 g/dL (32.0-36.0); Mean Corpuscular Volume 91.7 fL (80.0-100.0); Monocytes # (auto) 0.6 10 ^3/uL (0-1.3); Monocytes % (auto) 10.2 % (0.0-12.0); Neutrophils # (auto) 3.5 10 ^3/uL (1.6-8.6); Neutrophils % (auto) 59.9 % (37.0-80.0); Nucleated Red Blood Cells % 0.1 %; Platelet Count (auto) 168 10^3/uL (140-450); Red Blood Cells 3.07 10^6/uL (4.5-5.90); Red Cell Distribution Width 15.1 % (11.8-14.3); White Blood Cell 5.9 10^3/uL (4.4-10.8)
[2024-04-06 04:53] LABS: Chloride 101 mmol/L (98-107); Potassium 3.7 mmol/L (3.5-5.1); Sodium 137 mmol/L (136-145)
[2024-04-06 04:54] LABS: Anion Gap 9 (5-15); Calcium 9.4 mg/dL (8.7-10.4); Carbon Dioxide 27 mmol/L (20-31)
[2024-04-06 04:59] LABS: BUN/Creatinine Ratio 10.7 (10.0-20.0); Glucose 76 mg/dL (74-106)
[2024-04-06 05:01] LABS: Phosphorus 4.8 mg/dL (2.4-5.1)
[2024-04-06 05:09] LABS: Blood Urea Nitrogen 53 mg/dL (9-23); INR 3.48 (0.9-1.15); Prothrombin Time 33.6 sec (9.3-11.8)
[2024-04-06 05:11] LABS: Partial Thromboplastin Time 90.8 SEC (24.5-34.5)
[2024-04-06] MEDS: hydrALAZINE HCL 20 MG/ML VL IV PRN (05:59)
[2024-04-06] MEDS: D5W 5% 1,000 ML IV SCH (09:45)
[2024-04-06] MEDS: LORazepam 2MG/ML-1ML VIAL IV ONE (15:00)
[2024-04-06] MEDS: LORazepam 2MG/ML-1ML VIAL IV PRN (15:48)
[2024-04-06] MEDS: LABETALOL HCL 20 MG/4 ML VL IV PRN (18:43)
[2024-04-06] MEDS: ACETAMINOPHEN 325 MG TAB PO PRN (22:08)
[2024-04-07] VITALS (88 sets, daily range): BP systolic 67–242; BP diastolic 26–118; PULSE 51–113; RESP 0–26; TEMP 96.3–99.7; O2SAT 95–100
[2024-04-07] MEDS: ROCURONIUM 10MG/ML 10ML VIAL IV ONE ×2 (00:23→00:30)
[2024-04-07] MEDS: ETOMIDATE (2MG/ML) 20ML VIAL IV ONE ×2 (00:23→00:30)
[2024-04-07 00:25] LABS: Basophils # (auto) 0 10 ^3/uL (0-0.2); Basophils % (auto) 0.5 % (0.0-2.0); Eosinophils # (auto) 0.1 10 ^3/uL (0-0.8); Eosinophils % (auto) 0.7 % (0.0-7.0); Hematocrit 29.5 % (41.0-53.0); Hemoglobin 9.7 g/dL (13.5-17.5); Lymphocytes # (auto) 0.6 10 ^3/uL (0.4-5.4); Lymphocytes % (auto) 7.6 % (10.0-50.0); Mean Corpuscular Hemoglobin 30.6 pg (28.0-32.0); Mean Corpuscular Hgb Conc. 32.9 g/dL (32.0-36.0); Mean Corpuscular Volume 93.1 fL (80.0-100.0); Monocytes # (auto) 0.5 10 ^3/uL (0-1.3); Monocytes % (auto) 5.6 % (0.0-12.0); Neutrophils # (auto) 7.2 10 ^3/uL (1.6-8.6); Neutrophils % (auto) 85.6 % (37.0-80.0); Platelet Count (auto) 206 10^3/uL (140-450); Red Blood Cells 3.17 10^6/uL (4.5-5.90); Red Cell Distribution Width 15.3 % (11.8-14.3); White Blood Cell 8.4 10^3/uL (4.4-10.8)
[2024-04-07 00:38] LABS: Base Excess -3.6 mmol/L (-2.0-3.0)
[2024-04-07 00:43] LABS: Alanine Aminotransferase 19 U/L (7-40); Albumin 3.9 g/dL (3.2-4.8); Alkaline Phosphatase 94 U/L (46-116); Anion Gap 6 (5-15); Aspartate Aminotransferase 20 U/L (13-40); BUN/Creatinine Ratio 9.3 (10.0-20.0); Bilirubin, Total 0.3 mg/dL (0.2-1.0); Blood Urea Nitrogen 48 mg/dL (9-23); Calcium 9.2 mg/dL (8.7-10.4); Carbon Dioxide 27 mmol/L (20-31); Chloride 99 mmol/L (98-107); Glucose 115 mg/dL (74-106); Potassium 3.8 mmol/L (3.5-5.1)
[2024-04-07] MEDS: fentaNYL Drip 2500mCg/250mlNS 250 ML IV SCH (00:45)
[2024-04-07 00:46] LABS: Sodium 132 mmol/L (136-145)
[2024-04-07] MEDS: PROPOFOL 100 ML IV SCH (00:46)
[2024-04-07] MEDS: PROPOFOL 100 ML IV ONE (00:50)
[2024-04-07] MEDS: fentaNYL Drip 2500mCg/250mlNS 250 ML IV ONE (00:50)
[2024-04-07 03:01] LABS: Base Excess -3.6 mmol/L (-2.0-3.0)
[2024-04-07 04:56] LABS: Basophils # (auto) 0 10 ^3/uL (0-0.2); Basophils % (auto) 0.3 % (0.0-2.0); Eosinophils # (auto) 0.1 10 ^3/uL (0-0.8); Eosinophils % (auto) 0.9 % (0.0-7.0); Hemoglobin 10.8 g/dL (13.5-17.5); Lymphocytes # (auto) 0.9 10 ^3/uL (0.4-5.4); Lymphocytes % (auto) 9.8 % (10.0-50.0); Mean Corpuscular Hemoglobin 30.4 pg (28.0-32.0); Mean Corpuscular Hgb Conc. 32.7 g/dL (32.0-36.0); Mean Corpuscular Volume 92.9 fL (80.0-100.0); Monocytes # (auto) 0.7 10 ^3/uL (0-1.3); Neutrophils # (auto) 7.2 10 ^3/uL (1.6-8.6); Nucleated Red Blood Cells % 0.1 %; Platelet Count (auto) 218 10^3/uL (140-450); Red Blood Cells 3.55 10^6/uL (4.5-5.90); Red Cell Distribution Width 15.1 % (11.8-14.3); White Blood Cell 8.9 10^3/uL (4.4-10.8)
[2024-04-07 05:17] LABS: Alanine Aminotransferase 22 U/L (7-40); Albumin 3.9 g/dL (3.2-4.8); Alkaline Phosphatase 100 U/L (46-116); Anion Gap 11 (5-15); Aspartate Aminotransferase 25 U/L (13-40); BUN/Creatinine Ratio 9.3 (10.0-20.0); Blood Urea Nitrogen 48 mg/dL (9-23); Calcium 9.4 mg/dL (8.7-10.4); Carbon Dioxide 25 mmol/L (20-31); Chloride 97 mmol/L (98-107); Glucose 100 mg/dL (74-106); Magnesium 2.2 mg/dL (1.6-2.6); Potassium 4.2 mmol/L (3.5-5.1); Sodium 133 mmol/L (136-145)
[2024-04-07 05:18] LABS: Bilirubin, Total 0.3 mg/dL (0.2-1.0); Total Protein 6.2 g/dL (5.7-8.2)
[2024-04-07 05:24] LABS: INR 2.66 (0.9-1.15); Prothrombin Time 26.2 sec (9.3-11.8)
[2024-04-07 05:25] LABS: Partial Thromboplastin Time 72.6 SEC (24.5-34.5)
[2024-04-07 07:03] LABS: Base Excess 0.3 mmol/L (-2.0-3.0)
[2024-04-07] MEDS ORDERED: LACTULOSE 20Gm/30ML SOLN PO PRN (13:00)
[2024-04-07] MEDS: MEROPENEM 1GM IVPB 50 ML IV ONE (15:17)
[2024-04-07] MEDS: ACCU-CHEK COMFORT CURVE STRIP VI SCH (17:09)
[2024-04-07] MEDS: InsuLIN REG 1unit/0.01ml Soln (100units/ml) SC SCH (17:34)
[2024-04-07] MEDS: EPOETIN ALFA-EPBX 10,000 UNIT/1ML VIAL SC ONE (21:00)
[2024-04-07] MEDS ORDERED: MEROPENEM 1GM IVPB 50 ML IV SCH (22:00)
[2024-04-07] MEDS: MEROPENEM 500MG IVPB 50 ML IV SCH (22:58)
[2024-04-07] MEDS: AMINO ACID INFUSION IN D10W 1,000 ML IV SCH (22:58)
[2024-04-07] MEDS: METOCLOPRAMIDE HCL 5MG/ml INJ 2ml VIAL ONE (23:30)
[2024-04-08] VITALS (113 sets, daily range): BP systolic 74–212; BP diastolic 26–104; PULSE 47–91; RESP 0–22; TEMP 96.6–99.7; O2SAT 76–100
[2024-04-08 06:55] LABS: Base Excess 0.4 mmol/L (-2.0-3.0)
[2024-04-08 07:53] LABS: Basophils # (auto) 0.1 10 ^3/uL (0-0.2); Basophils % (auto) 1.1 % (0.0-2.0); Eosinophils # (auto) 0.3 10 ^3/uL (0-0.8); Eosinophils % (auto) 3.7 % (0.0-7.0); Hematocrit 30.2 % (41.0-53.0); Hemoglobin 9.5 g/dL (13.5-17.5); Lymphocytes # (auto) 1.6 10 ^3/uL (0.4-5.4); Lymphocytes % (auto) 18.9 % (10.0-50.0); Mean Corpuscular Hemoglobin 29.7 pg (28.0-32.0); Mean Corpuscular Hgb Conc. 31.6 g/dL (32.0-36.0); Mean Corpuscular Volume 94.3 fL (80.0-100.0); Monocytes # (auto) 1.4 10 ^3/uL (0-1.3); Neutrophils # (auto) 5.1 10 ^3/uL (1.6-8.6); Neutrophils % (auto) 60.3 % (37.0-80.0); Nucleated Red Blood Cells % 0.3 %; Platelet Count (auto) 223 10^3/uL (140-450); Red Cell Distribution Width 15.2 % (11.8-14.3); White Blood Cell 8.5 10^3/uL (4.4-10.8)
[2024-04-08 09:17] LABS: Alanine Aminotransferase 16 U/L (7-40); Albumin 3.7 g/dL (3.2-4.8); Alkaline Phosphatase 77 U/L (46-116); Anion Gap 9 (5-15); Aspartate Aminotransferase 12 U/L (13-40); BUN/Creatinine Ratio 8.3 (10.0-20.0); Calcium 8.9 mg/dL (8.7-10.4); Carbon Dioxide 27 mmol/L (20-31); Chloride 100 mmol/L (98-107); Glucose 85 mg/dL (74-106); Magnesium 1.9 mg/dL (1.6-2.6); Phosphorus 4.8 mg/dL (2.4-5.1); Potassium 3.5 mmol/L (3.5-5.1); Sodium 136 mmol/L (136-145); Triglycerides 267 mg/dL (< 150)
[2024-04-08 09:18] LABS: Bilirubin, Total 0.3 mg/dL (0.2-1.0); Total Protein 5.5 g/dL (5.7-8.2)
[2024-04-08 09:20] LABS: Blood Urea Nitrogen 34 mg/dL (9-23)
[2024-04-08 10:13] LABS: INR > 8.0 (0.9-1.15); Partial Thromboplastin Time 124.4 SEC (24.5-34.5)
[2024-04-08] MEDS: D5W 5% 1,000 ML IV SCH (10:15)
[2024-04-08] MEDS: PROPOFOL 100 ML IV ONE (10:30)
[2024-04-08] MEDS: ARGATROBAN 250 MG in SODIUM CHL 0.9% 248.5 ML IV SCH (13:28)
[2024-04-08 15:33] LABS: INR 3.23 (0.9-1.15); Prothrombin Time 31.4 sec (9.3-11.8)
[2024-04-08 15:35] LABS: Partial Thromboplastin Time 84.7 SEC (24.5-34.5)
[2024-04-08 19:42] LABS: INR 2.7 (0.9-1.15); Partial Thromboplastin Time 61.7 SEC (24.5-34.5); Prothrombin Time 26.6 sec (9.3-11.8)
[2024-04-08] MEDS ORDERED: ARGATROBAN 250 MG in SODIUM CHL 0.9% 248.5 ML IV SCH (22:00)
[2024-04-09] VITALS (105 sets, daily range): BP systolic 79–161; BP diastolic 26–76; PULSE 48–91; RESP 17–25; TEMP 96.8–99.1; O2SAT 92–100
[2024-04-09 00:55] LABS: INR 2.71 (0.9-1.15); Partial Thromboplastin Time 58.6 SEC (24.5-34.5); Prothrombin Time 26.7 sec (9.3-11.8)
[2024-04-09] MEDS: ARGATROBAN 250 MG in SODIUM CHL 0.9% 248.5 ML IV SCH (01:45)
[2024-04-09 04:33] LABS: Basophils # (auto) 0.1 10 ^3/uL (0-0.2); Basophils % (auto) 2.3 % (0.0-2.0); Eosinophils # (auto) 0.3 10 ^3/uL (0-0.8); Eosinophils % (auto) 4.7 % (0.0-7.0); Hematocrit 30.7 % (41.0-53.0); Hemoglobin 10.2 g/dL (13.5-17.5); Lymphocytes # (auto) 1.4 10 ^3/uL (0.4-5.4); Lymphocytes % (auto) 22.3 % (10.0-50.0); Mean Corpuscular Hemoglobin 30.5 pg (28.0-32.0); Mean Corpuscular Hgb Conc. 33.2 g/dL (32.0-36.0); Mean Corpuscular Volume 91.6 fL (80.0-100.0); Monocytes % (auto) 15.2 % (0.0-12.0); Neutrophils # (auto) 3.6 10 ^3/uL (1.6-8.6); Neutrophils % (auto) 55.5 % (37.0-80.0); Nucleated Red Blood Cells % 0.1 %; Platelet Count (auto) 280 10^3/uL (140-450); Red Blood Cells 3.35 10^6/uL (4.5-5.90); Red Cell Distribution Width 15.1 % (11.8-14.3); White Blood Cell 6.4 10^3/uL (4.4-10.8)
[2024-04-09 04:50] LABS: Alanine Aminotransferase 12 U/L (7-40); Alkaline Phosphatase 78 U/L (46-116); Anion Gap 9 (5-15); Aspartate Aminotransferase 10 U/L (13-40); BUN/Creatinine Ratio 7.9 (10.0-20.0); Bilirubin, Total 0.3 mg/dL (0.2-1.0); Blood Urea Nitrogen 37 mg/dL (9-23); Calcium 9.3 mg/dL (8.7-10.4); Carbon Dioxide 24 mmol/L (20-31); Chloride 100 mmol/L (98-107); Glucose 96 mg/dL (74-106); Phosphorus 5.5 mg/dL (2.4-5.1); Potassium 3.5 mmol/L (3.5-5.1); Sodium 133 mmol/L (136-145); Total Protein 5.9 g/dL (5.7-8.2)
[2024-04-09 05:21] LABS: Albumin 3.8 g/dL (3.2-4.8)
[2024-04-09] MEDS ORDERED: LORazepam 2MG/ML-1ML VIAL IV PRN (06:45)
[2024-04-09 08:31] LABS: Base Excess -1.4 mmol/L (-2.0-3.0)
[2024-04-09] MEDS ORDERED: SPIRONOLACTONE 25 MG TAB PO ONE (09:00)
[2024-04-09] MEDS: SODIUM CHL 0.9% 1000 ML BAG XX ONE (09:45)
[2024-04-09 11:08] LABS: INR 3.41 (0.9-1.15)
[2024-04-09 11:10] LABS: Partial Thromboplastin Time 75.7 SEC (24.5-34.5)
[2024-04-09] MEDS ORDERED: BUMETANIDE 2.5mg/10ml (0.25 mg/ml) INJ IV ONE (12:00)
[2024-04-09 13:10] LABS: INR 3.23 (0.9-1.15); Prothrombin Time 31.4 sec (9.3-11.8)
[2024-04-09 13:12] LABS: Partial Thromboplastin Time 77.4 SEC (24.5-34.5)
[2024-04-09 16:56] LABS: INR 3.11 (0.9-1.15); Prothrombin Time 30.3 sec (9.3-11.8)
[2024-04-09 16:58] LABS: Partial Thromboplastin Time 75.1 SEC (24.5-34.5)
[2024-04-09 21:00] LABS: INR 2.97 (0.9-1.15)
[2024-04-09] MEDS: EPOETIN ALFA-EPBX 4,000 UNIT/ML VIAL SC ONE (21:00)
[2024-04-09 21:34] LABS: Partial Thromboplastin Time 74.9 SEC (24.5-34.5)
[2024-04-10] VITALS (113 sets, daily range): BP systolic 87–196; BP diastolic 8–77; PULSE 48–78; RESP 15–27; TEMP 96.6–98.8; O2SAT 94–100
[2024-04-10] MEDS: ARGATROBAN 250 MG in SODIUM CHL 0.9% 248.5 ML IV SCH (01:30)
[2024-04-10 03:51] LABS: Basophils # (auto) 0.2 10 ^3/uL (0-0.2); Basophils % (auto) 2.5 % (0.0-2.0); Eosinophils # (auto) 0.3 10 ^3/uL (0-0.8); Eosinophils % (auto) 4.2 % (0.0-7.0); Hematocrit 27.9 % (41.0-53.0); Hemoglobin 9.4 g/dL (13.5-17.5); Lymphocytes # (auto) 1.6 10 ^3/uL (0.4-5.4); Lymphocytes % (auto) 25.7 % (10.0-50.0); Mean Corpuscular Hemoglobin 30.6 pg (28.0-32.0); Mean Corpuscular Hgb Conc. 33.6 g/dL (32.0-36.0); Mean Corpuscular Volume 91.1 fL (80.0-100.0); Monocytes # (auto) 0.7 10 ^3/uL (0-1.3); Monocytes % (auto) 12.1 % (0.0-12.0); Neutrophils # (auto) 3.3 10 ^3/uL (1.6-8.6); Neutrophils % (auto) 55.5 % (37.0-80.0); Platelet Count (auto) 348 10^3/uL (140-450); Red Blood Cells 3.06 10^6/uL (4.5-5.90); Red Cell Distribution Width 15.1 % (11.8-14.3)
[2024-04-10 04:05] LABS: Alanine Aminotransferase 13 U/L (7-40); Albumin 3.7 g/dL (3.2-4.8); Alkaline Phosphatase 86 U/L (46-116); Anion Gap 11 (5-15); Aspartate Aminotransferase 14 U/L (13-40); BUN/Creatinine Ratio 9.3 (10.0-20.0); Bilirubin, Total 0.3 mg/dL (0.2-1.0); Blood Urea Nitrogen 46 mg/dL (9-23); Calcium 9.1 mg/dL (8.7-10.4); Carbon Dioxide 23 mmol/L (20-31); Chloride 98 mmol/L (98-107); Glucose 102 mg/dL (74-106); Magnesium 1.9 mg/dL (1.6-2.6); Potassium 3.3 mmol/L (3.5-5.1); Sodium 132 mmol/L (136-145)
[2024-04-10 04:06] LABS: Total Protein 5.8 g/dL (5.7-8.2)
[2024-04-10 06:01] LABS: Base Excess -3.7 mmol/L (-2.0-3.0)
[2024-04-10 06:22] LABS: INR 3.21 (0.9-1.15); Prothrombin Time 31.2 sec (9.3-11.8)
[2024-04-10] MEDS: POTASSIUM CHL 20MEQ/100ML 100 ML IV ONE (08:07)
[2024-04-10] MEDS: SODIUM CHL 0.9% 1000 ML BAG XX ONE (09:30)
[2024-04-10 11:39] LABS: INR 3.39 (0.9-1.15)
[2024-04-10] MEDS: CALCIUM ACETATE 667 MG CAP PO SCH (14:49)
[2024-04-10] MEDS: EPOETIN ALFA-EPBX 4,000 UNIT/ML VIAL SC ONE (20:38)
[2024-04-11] VITALS (107 sets, daily range): BP systolic 84–178; BP diastolic 18–90; PULSE 42–72; RESP 15–24; TEMP 96.1–98.4; O2SAT 94–100
[2024-04-11 04:23] LABS: Basophils # (auto) 0.1 10 ^3/uL (0-0.2); Basophils % (auto) 3.2 % (0.0-2.0); Eosinophils # (auto) 0.2 10 ^3/uL (0-0.8); Eosinophils % (auto) 5.3 % (0.0-7.0); Hemoglobin 8.4 g/dL (13.5-17.5); Lymphocytes # (auto) 0.9 10 ^3/uL (0.4-5.4); Lymphocytes % (auto) 18.9 % (10.0-50.0); Mean Corpuscular Hemoglobin 29.4 pg (28.0-32.0); Mean Corpuscular Hgb Conc. 32.5 g/dL (32.0-36.0); Mean Corpuscular Volume 90.5 fL (80.0-100.0); Monocytes # (auto) 0.6 10 ^3/uL (0-1.3); Monocytes % (auto) 13.2 % (0.0-12.0); Neutrophils # (auto) 2.7 10 ^3/uL (1.6-8.6); Neutrophils % (auto) 59.4 % (37.0-80.0); Platelet Count (auto) 333 10^3/uL (140-450); Red Blood Cells 2.87 10^6/uL (4.5-5.90); White Blood Cell 4.6 10^3/uL (4.4-10.8)
[2024-04-11 04:40] LABS: INR 1.31 (0.9-1.15); Partial Thromboplastin Time 43.6 SEC (24.5-34.5); Prothrombin Time 13.6 sec (9.3-11.8)
[2024-04-11 04:41] LABS: Alanine Aminotransferase 14 U/L (7-40); Alkaline Phosphatase 84 U/L (46-116); Anion Gap 8 (5-15); BUN/Creatinine Ratio 9.4 (10.0-20.0); Calcium 8.6 mg/dL (8.7-10.4); Carbon Dioxide 28 mmol/L (20-31); Chloride 100 mmol/L (98-107); Glucose 73 mg/dL (74-106); Magnesium 1.9 mg/dL (1.6-2.6); Potassium 3.6 mmol/L (3.5-5.1); Sodium 136 mmol/L (136-145)
[2024-04-11 04:42] LABS: Albumin 3.5 g/dL (3.2-4.8); Aspartate Aminotransferase 16 U/L (13-40); Bilirubin, Total 0.2 mg/dL (0.2-1.0); Phosphorus 4.4 mg/dL (2.4-5.1); Total Protein 5.4 g/dL (5.7-8.2)
[2024-04-11 04:52] LABS: Blood Urea Nitrogen 32 mg/dL (9-23)
[2024-04-11 06:40] LABS: Base Excess -1.9 mmol/L (-2.0-3.0)
[2024-04-11] MEDS: MAGNESIUM SULFATE 1GM/100ML 100 ML IV ONE (07:00)
[2024-04-11 09:01] LABS: INR 1.26 (0.9-1.15); Partial Thromboplastin Time 40.2 SEC (24.5-34.5); Prothrombin Time 13.1 sec (9.3-11.8)
[2024-04-11] MEDS ORDERED: BACTRIM 5MG/KG Q8HR PER RX 10 ML IV SCH (10:45)
[2024-04-11] MEDS: MIDAZOLAM DRIP 50 mg/50mL 50 ML IV SCH (10:45)
[2024-04-11] MEDS ORDERED: fentaNYL CITRATE 100 MCG/2 ML VL ONE (12:39)
[2024-04-11] MEDS ORDERED: KETAMINE 50mg/ML 10ml Vial 10 ML ONE (12:39)
[2024-04-11] MEDS ORDERED: PROPOFOL 10 MG/ML 20 ML IV ONE (12:40)
[2024-04-11] MEDS ORDERED: SODIUM CHLORIDE LOCK 10 ML ONE (12:40)
[2024-04-11] MEDS ORDERED: MIDAZOLAM HCL 2MG/2ML 2ml VIAL (1mg/ml) ONE (12:40)
[2024-04-11] MEDS ORDERED: MEPERIDINE HCL (50 MG/ML) 1 ML VIAL ONE (12:40)
[2024-04-11] MEDS ORDERED: ROCURONIUM 10MG/ML 10ML VIAL IV ONE (12:40)
[2024-04-11] MEDS: SULFAMETH TRIMETH IV SCH (15:27)
[2024-04-11] MEDS: D5W 5% IV SCH (15:27)
[2024-04-11] MEDS: POTASSIUM CHLORIDE 40 MEQ, LIDOCAINE 1% (LOCAL ANESTH.) 4 ML in SODIUM CHL 0.9% 250 ML IV ONE (17:15)
[2024-04-12] VITALS (112 sets, daily range): BP systolic 58–185; BP diastolic 18–103; PULSE 47–83; RESP 6–28; TEMP 97.9–99.5; O2SAT 93–100
[2024-04-12] MEDS: levoFLOXacin 500MG 100 ML IV SCH (00:16)
[2024-04-12 03:46] LABS: Basophils # (auto) 0.2 10 ^3/uL (0-0.2); Basophils % (auto) 3.1 % (0.0-2.0); Eosinophils # (auto) 0.2 10 ^3/uL (0-0.8); Eosinophils % (auto) 4.3 % (0.0-7.0); Hematocrit 26.1 % (41.0-53.0); Hemoglobin 8.5 g/dL (13.5-17.5); Lymphocytes # (auto) 1.2 10 ^3/uL (0.4-5.4); Lymphocytes % (auto) 20.4 % (10.0-50.0); Mean Corpuscular Hemoglobin 29.7 pg (28.0-32.0); Mean Corpuscular Hgb Conc. 32.6 g/dL (32.0-36.0); Mean Corpuscular Volume 91.2 fL (80.0-100.0); Monocytes # (auto) 0.8 10 ^3/uL (0-1.3); Monocytes % (auto) 14.6 % (0.0-12.0); Neutrophils # (auto) 3.2 10 ^3/uL (1.6-8.6); Neutrophils % (auto) 57.6 % (37.0-80.0); Nucleated Red Blood Cells % 0.1 %; Platelet Count (auto) 338 10^3/uL (140-450); Red Blood Cells 2.86 10^6/uL (4.5-5.90); Red Cell Distribution Width 14.9 % (11.8-14.3); White Blood Cell 5.6 10^3/uL (4.4-10.8)
[2024-04-12 03:55] LABS: Chloride 100 mmol/L (98-107); Potassium 4.3 mmol/L (3.5-5.1)
[2024-04-12 03:56] LABS: Anion Gap 8 (5-15); Carbon Dioxide 23 mmol/L (20-31)
[2024-04-12 04:01] LABS: BUN/Creatinine Ratio 8.5 (10.0-20.0); Blood Urea Nitrogen 32 mg/dL (9-23); Glucose 122 mg/dL (74-106)
[2024-04-12 04:03] LABS: Phosphorus 4.4 mg/dL (2.4-5.1); Sodium 131 mmol/L (136-145)
[2024-04-12 07:01] LABS: Base Excess -0.9 mmol/L (-2.0-3.0)
[2024-04-12] MEDS: APIXABAN 2.5 MG TAB PO SCH (22:27)
[2024-04-13] VITALS (111 sets, daily range): BP systolic 70–196; BP diastolic 18–110; PULSE 43–107; RESP 11–26; TEMP 96.4–98.6; O2SAT 86–100
[2024-04-13] MEDS: DEXTROSE (50%) 50ML SYRG IV SCH (00:14)
[2024-04-13 04:14] LABS: Basophils # (auto) 0.1 10 ^3/uL (0-0.2); Basophils % (auto) 2.6 % (0.0-2.0); Eosinophils # (auto) 0.2 10 ^3/uL (0-0.8); Eosinophils % (auto) 4.5 % (0.0-7.0); Monocytes # (auto) 0.6 10 ^3/uL (0-1.3); Neutrophils # (auto) 2.3 10 ^3/uL (1.6-8.6); White Blood Cell 4.3 10^3/uL (4.4-10.8)
[2024-04-13 04:18] LABS: Hematocrit 23.3 % (41.0-53.0); Hemoglobin 7.9 g/dL (13.5-17.5); Lymphocytes # (auto) 1.1 10 ^3/uL (0.4-5.4); Lymphocytes % (auto) 24.9 % (10.0-50.0); Mean Corpuscular Hemoglobin 30.4 pg (28.0-32.0); Mean Corpuscular Hgb Conc. 34.1 g/dL (32.0-36.0); Mean Corpuscular Volume 89.2 fL (80.0-100.0); Monocytes % (auto) 14.3 % (0.0-12.0); Neutrophils % (auto) 53.7 % (37.0-80.0); Platelet Count (auto) 300 10^3/uL (140-450); Red Blood Cells 2.62 10^6/uL (4.5-5.90); Red Cell Distribution Width 14.8 % (11.8-14.3)
[2024-04-13 04:24] LABS: Alanine Aminotransferase 15 U/L (7-40); Albumin 3.5 g/dL (3.2-4.8); Alkaline Phosphatase 79 U/L (46-116); Anion Gap 10 (5-15); Aspartate Aminotransferase 18 U/L (13-40); BUN/Creatinine Ratio 10.8 (10.0-20.0); Calcium 9.3 mg/dL (8.7-10.4); Carbon Dioxide 24 mmol/L (20-31); Chloride 99 mmol/L (98-107); Glucose 82 mg/dL (74-106); Magnesium 2.1 mg/dL (1.6-2.6); Potassium 3.6 mmol/L (3.5-5.1); Sodium 133 mmol/L (136-145)
[2024-04-13 04:25] LABS: Bilirubin, Total 0.2 mg/dL (0.2-1.0); Phosphorus 4.5 mg/dL (2.4-5.1); Total Protein 5.4 g/dL (5.7-8.2)
[2024-04-13 04:28] LABS: Blood Urea Nitrogen 46 mg/dL (9-23)
[2024-04-13 06:36] LABS: Base Excess -0.9 mmol/L (-2.0-3.0)
[2024-04-13] MEDS: FUROSEMIDE 20 MG/2 ML VIAL IV SCH (10:48)
[2024-04-14] VITALS (122 sets, daily range): BP systolic 78–207; BP diastolic 35–105; PULSE 39–99; RESP 10–28; TEMP 95.4–98.8; O2SAT 88–100
[2024-04-14 03:54] LABS: Basophils # (auto) 0.1 10 ^3/uL (0-0.2); Eosinophils # (auto) 0.1 10 ^3/uL (0-0.8); Lymphocytes # (auto) 0.9 10 ^3/uL (0.4-5.4); Monocytes # (auto) 0.5 10 ^3/uL (0-1.3); Neutrophils # (auto) 1.6 10 ^3/uL (1.6-8.6)
[2024-04-14 03:57] LABS: Basophils % (auto) 2.8 % (0.0-2.0); Hematocrit 20.9 % (41.0-53.0); Hemoglobin 7.1 g/dL (13.5-17.5); Lymphocytes % (auto) 27.3 % (10.0-50.0); Mean Corpuscular Hemoglobin 30.2 pg (28.0-32.0); Mean Corpuscular Hgb Conc. 33.8 g/dL (32.0-36.0); Mean Corpuscular Volume 89.2 fL (80.0-100.0); Monocytes % (auto) 16.9 % (0.0-12.0); Nucleated Red Blood Cells % 0.1 %; Platelet Count (auto) 278 10^3/uL (140-450); Red Blood Cells 2.35 10^6/uL (4.5-5.90); Red Cell Distribution Width 14.6 % (11.8-14.3); White Blood Cell 3.3 10^3/uL (4.4-10.8)
[2024-04-14 04:00] LABS: Alanine Aminotransferase 12 U/L (7-40); Alkaline Phosphatase 81 U/L (46-116); Anion Gap 11 (5-15); BUN/Creatinine Ratio 10.5 (10.0-20.0); Blood Urea Nitrogen 48 mg/dL (9-23); Calcium 9.3 mg/dL (8.7-10.4); Carbon Dioxide 23 mmol/L (20-31); Chloride 99 mmol/L (98-107); Glucose 67 mg/dL (74-106); Magnesium 2.2 mg/dL (1.6-2.6); Sodium 133 mmol/L (136-145)
[2024-04-14 04:01] LABS: Albumin 3.4 g/dL (3.2-4.8); Aspartate Aminotransferase 17 U/L (13-40); Bilirubin, Total 0.2 mg/dL (0.2-1.0); Total Protein 5.2 g/dL (5.7-8.2)
[2024-04-14] MEDS: SULFAMETH-TRIMETH 80/16MG-ML 20 ML in D5W 5% 500 ML IV SCH (05:27)
[2024-04-14 07:34] LABS: Base Excess -2.1 mmol/L (-2.0-3.0)
[2024-04-14] MEDS: SODIUM CHL 0.9% 1000 ML BAG XX ONE (10:30)
[2024-04-14] MEDS: LACTULOSE 20Gm/30ML SOLN PO SCH (14:15)
[2024-04-14] MEDS: FUROSEMIDE 40 MG/4 ML VIAL IV SCH (17:07)
[2024-04-14] MEDS: EPOETIN ALFA-EPBX 10,000 UNIT/1ML VIAL SC ONE (21:10)
[2024-04-15] VITALS (118 sets, daily range): BP systolic 66–184; BP diastolic 25–104; PULSE 42–84; RESP 16–29; TEMP 97.9–98.8; O2SAT 88–100
[2024-04-15 04:27] LABS: Hematocrit 23.3 % (41.0-53.0); Hemoglobin 7.9 g/dL (13.5-17.5); Red Blood Cells 2.65 10^6/uL (4.5-5.90); White Blood Cell 3.7 10^3/uL (4.4-10.8)
[2024-04-15 04:29] LABS: Mean Corpuscular Hemoglobin 29.9 pg (28.0-32.0); Mean Corpuscular Hgb Conc. 33.9 g/dL (32.0-36.0); Mean Corpuscular Volume 88.2 fL (80.0-100.0); Platelet Count (auto) 304 10^3/uL (140-450); Red Cell Distribution Width 14.2 % (11.8-14.3)
[2024-04-15 04:59] LABS: Band Neutrophils % (manual) 0; Basophils % (manual) 0 (0.0-2.0); Blast Cells 0; Metamyelocytes % 0; Myelocytes % 0; Promyelocytes % 0; Reactive Lymphocytes 0
[2024-04-15 06:59] LABS: Eosinophils % (manual) 5 (0-7); Lymphocytes % (manual) 26 (10.0-50.0); Monocytes % (manual) 13 (0-12); Platelet Estimate Adequate
[2024-04-15 08:25] LABS: Base Excess 0.7 mmol/L (-2.0-3.0)
[2024-04-15] MEDS: TRANEXAMIC ACID 1,000 mg/10ml INJ VIAL NEB ONE (08:59)
[2024-04-15] MEDS ORDERED: LACTULOSE 20Gm/30ML SOLN PO PRN (14:00)
[2024-04-16] VITALS (113 sets, daily range): BP systolic 45–184; BP diastolic 19–150; PULSE 43–75; RESP 0–29; TEMP 64–98.8; O2SAT 93–100
[2024-04-16 03:50] LABS: Basophils # (auto) 0.1 10 ^3/uL (0-0.2); Basophils % (auto) 3.1 % (0.0-2.0); Eosinophils # (auto) 0.2 10 ^3/uL (0-0.8); Eosinophils % (auto) 3.9 % (0.0-7.0); Hematocrit 25.9 % (41.0-53.0); Hemoglobin 8.7 g/dL (13.5-17.5); Lymphocytes # (auto) 1.3 10 ^3/uL (0.4-5.4); Lymphocytes % (auto) 31.3 % (10.0-50.0); Mean Corpuscular Hemoglobin 29.8 pg (28.0-32.0); Mean Corpuscular Hgb Conc. 33.5 g/dL (32.0-36.0); Mean Corpuscular Volume 88.9 fL (80.0-100.0); Monocytes # (auto) 0.7 10 ^3/uL (0-1.3); Monocytes % (auto) 16.9 % (0.0-12.0); Neutrophils # (auto) 1.9 10 ^3/uL (1.6-8.6); Neutrophils % (auto) 44.8 % (37.0-80.0); Platelet Count (auto) 360 10^3/uL (140-450); Red Blood Cells 2.92 10^6/uL (4.5-5.90); Red Cell Distribution Width 14.6 % (11.8-14.3); White Blood Cell 4.2 10^3/uL (4.4-10.8)
[2024-04-16 04:13] LABS: Alanine Aminotransferase 11 U/L (7-40); Albumin 3.6 g/dL (3.2-4.8); Alkaline Phosphatase 90 U/L (46-116); Anion Gap 12 (5-15); Aspartate Aminotransferase 16 U/L (13-40); BUN/Creatinine Ratio 9.4 (10.0-20.0); Bilirubin, Total 0.2 mg/dL (0.2-1.0); Blood Urea Nitrogen 41 mg/dL (9-23); Calcium 9.1 mg/dL (8.7-10.4); Carbon Dioxide 26 mmol/L (20-31); Chloride 98 mmol/L (98-107); Glucose 76 mg/dL (74-106); Magnesium 2.3 mg/dL (1.6-2.6); Potassium 3.5 mmol/L (3.5-5.1); Sodium 136 mmol/L (136-145); Total Protein 5.6 g/dL (5.7-8.2)
[2024-04-16 07:30] LABS: Base Excess 0.8 mmol/L (-2.0-3.0)
[2024-04-16] MEDS: fentaNYL Drip 2500mCg/250mlNS 250 ML IV SCH (08:35)
[2024-04-16] MEDS: SODIUM CHLORIDE 0.9% 250 ML IV ONE (12:45)
[2024-04-16] MEDS ORDERED: hydrALAZINE HCL 20 MG/ML VL IV PRN (21:30)
[2024-04-17] VITALS (107 sets, daily range): BP systolic 61–193; BP diastolic 22–106; PULSE 46–83; RESP 11–26; TEMP 97–99.1; O2SAT 90–100
[2024-04-17 04:40] LABS: Basophils # (auto) 0.1 10 ^3/uL (0-0.2); Basophils % (auto) 3.4 % (0.0-2.0); Eosinophils # (auto) 0.2 10 ^3/uL (0-0.8); Monocytes # (auto) 0.6 10 ^3/uL (0-1.3); Monocytes % (auto) 15.6 % (0.0-12.0); Neutrophils # (auto) 1.6 10 ^3/uL (1.6-8.6); Nucleated Red Blood Cells % 0.1 %
[2024-04-17 04:46] LABS: Eosinophils % (auto) 4.7 % (0.0-7.0); Hematocrit 24.4 % (41.0-53.0); Hemoglobin 8.3 g/dL (13.5-17.5); Lymphocytes # (auto) 1.4 10 ^3/uL (0.4-5.4); Lymphocytes % (auto) 35.7 % (10.0-50.0); Mean Corpuscular Hemoglobin 30.1 pg (28.0-32.0); Mean Corpuscular Hgb Conc. 33.8 g/dL (32.0-36.0); Mean Corpuscular Volume 89.1 fL (80.0-100.0); Neutrophils % (auto) 40.6 % (37.0-80.0); Platelet Count (auto) 332 10^3/uL (140-450); Red Blood Cells 2.74 10^6/uL (4.5-5.90); Red Cell Distribution Width 14.3 % (11.8-14.3)
[2024-04-17 04:56] LABS: Chloride 99 mmol/L (98-107); Potassium 3.7 mmol/L (3.5-5.1); Sodium 135 mmol/L (136-145)
[2024-04-17 04:57] LABS: Anion Gap 9 (5-15); Calcium 9.4 mg/dL (8.7-10.4); Carbon Dioxide 27 mmol/L (20-31)
[2024-04-17 05:02] LABS: BUN/Creatinine Ratio 10.3 (10.0-20.0); Blood Urea Nitrogen 48 mg/dL (9-23); Glucose 82 mg/dL (74-106)
[2024-04-17 05:03] LABS: Magnesium 2.4 mg/dL (1.6-2.6)
[2024-04-17] MEDS: MIDODRINE HCL 10 MG TAB PO ONE (12:45)
[2024-04-17 15:12] LABS: INR 1.18 (0.9-1.15); Prothrombin Time 12.4 sec (9.3-11.8)
[2024-04-17] MEDS: DOPamine 1600MCG/ML D5W 250 ML IV SCH (17:00)
[2024-04-17] MEDS: MIDODRINE HCL 10 MG TAB PO SCH (18:11)
[2024-04-18] VITALS (108 sets, daily range): BP systolic 69–163; BP diastolic 23–120; PULSE 58–111; RESP 12–22; TEMP 97.7–99.7; O2SAT 88–100
[2024-04-18 04:13] LABS: Chloride 99 mmol/L (98-107); Potassium 3.5 mmol/L (3.5-5.1); Sodium 136 mmol/L (136-145)
[2024-04-18 04:14] LABS: Anion Gap 10 (5-15); Carbon Dioxide 27 mmol/L (20-31)
[2024-04-18 04:15] LABS: Calcium 9.9 mg/dL (8.7-10.4)
[2024-04-18 04:19] LABS: BUN/Creatinine Ratio 9.7 (10.0-20.0); Basophils # (auto) 0.2 10 ^3/uL (0-0.2); Basophils % (auto) 2.9 % (0.0-2.0); Eosinophils # (auto) 0.3 10 ^3/uL (0-0.8); Eosinophils % (auto) 4.9 % (0.0-7.0); Glucose 79 mg/dL (74-106); Hemoglobin 9.4 g/dL (13.5-17.5); Lymphocytes # (auto) 1.2 10 ^3/uL (0.4-5.4); Lymphocytes % (auto) 20.7 % (10.0-50.0); Mean Corpuscular Hemoglobin 29.5 pg (28.0-32.0); Mean Corpuscular Hgb Conc. 33.4 g/dL (32.0-36.0); Mean Corpuscular Volume 88.3 fL (80.0-100.0); Monocytes # (auto) 0.9 10 ^3/uL (0-1.3); Monocytes % (auto) 16.6 % (0.0-12.0); Neutrophils # (auto) 3.1 10 ^3/uL (1.6-8.6); Neutrophils % (auto) 54.9 % (37.0-80.0); Platelet Count (auto) 356 10^3/uL (140-450); Red Blood Cells 3.17 10^6/uL (4.5-5.90); Red Cell Distribution Width 14.4 % (11.8-14.3); White Blood Cell 5.6 10^3/uL (4.4-10.8)
[2024-04-18 04:20] LABS: Magnesium 2.3 mg/dL (1.6-2.6)
[2024-04-18 04:25] LABS: Blood Urea Nitrogen 38 mg/dL (9-23)
[2024-04-18 08:00] LABS: Base Excess 2.6 mmol/L (-2.0-3.0)
[2024-04-18] MEDS ORDERED: ROCURONIUM 10MG/ML 10ML VIAL IV ONE (09:29)
[2024-04-18] MEDS ORDERED: KETAMINE 50mg/ML 1ml syringe ONE (09:29)
[2024-04-18] MEDS ORDERED: SODIUM CHLORIDE LOCK 10 ML ONE (09:43)
[2024-04-18] MEDS: BUPIVACAINE HCL 0.25% P/F 10 ML VIAL ONE (10:25)
[2024-04-18] MEDS: LIDOCAINE W/ EPINEPHRINE 1% 20ML VIAL ONE (10:25)
[2024-04-18] MEDS: IODIXANOL 320MG/ML 100ML BTL IV ONE (13:41)
[2024-04-19] VITALS (117 sets, daily range): BP systolic 59–179; BP diastolic 19–145; PULSE 58–105; RESP 9–30; TEMP 84.7–99.5; O2SAT 79–100
[2024-04-19 04:16] LABS: Anion Gap 9 (5-15); Carbon Dioxide 25 mmol/L (20-31); Chloride 100 mmol/L (98-107); Potassium 3.7 mmol/L (3.5-5.1); Sodium 134 mmol/L (136-145)
[2024-04-19 04:17] LABS: Calcium 9.8 mg/dL (8.7-10.4)
[2024-04-19 04:19] LABS: Basophils # (auto) 0.1 10 ^3/uL (0-0.2); Basophils % (auto) 2.6 % (0.0-2.0); Eosinophils # (auto) 0.1 10 ^3/uL (0-0.8); Eosinophils % (auto) 2.5 % (0.0-7.0); Hematocrit 26.4 % (41.0-53.0); Hemoglobin 8.8 g/dL (13.5-17.5); Lymphocytes # (auto) 1.2 10 ^3/uL (0.4-5.4); Lymphocytes % (auto) 23.3 % (10.0-50.0); Mean Corpuscular Hemoglobin 29.5 pg (28.0-32.0); Mean Corpuscular Hgb Conc. 33.5 g/dL (32.0-36.0); Mean Corpuscular Volume 87.9 fL (80.0-100.0); Monocytes # (auto) 0.7 10 ^3/uL (0-1.3); Monocytes % (auto) 12.8 % (0.0-12.0); Neutrophils # (auto) 3.1 10 ^3/uL (1.6-8.6); Neutrophils % (auto) 58.8 % (37.0-80.0); Nucleated Red Blood Cells % 0.1 %; Platelet Count (auto) 334 10^3/uL (140-450); Red Cell Distribution Width 14.8 % (11.8-14.3); White Blood Cell 5.3 10^3/uL (4.4-10.8)
[2024-04-19 04:21] LABS: Glucose 89 mg/dL (74-106)
[2024-04-19 04:22] LABS: BUN/Creatinine Ratio 9.4 (10.0-20.0); Blood Urea Nitrogen 41 mg/dL (9-23); Magnesium 2.4 mg/dL (1.6-2.6)
[2024-04-19 08:50] LABS: Base Excess 1.1 mmol/L (-2.0-3.0)
[2024-04-19] MEDS: SODIUM CHL 0.9% 1000 ML BAG XX ONE (14:00)
[2024-04-19] MEDS: HEPARIN 1,000 UNITS/ml 1ML VIAL IV ONE (17:31)
[2024-04-19] MEDS: EPOETIN ALFA-EPBX 4,000 UNIT/ML VIAL SC ONE (20:49)
[2024-04-20] VITALS (93 sets, daily range): BP systolic 77–184; BP diastolic 23–88; PULSE 49–112; RESP 0–27; TEMP 86.4–99.3; O2SAT 81–100
[2024-04-20 04:03] LABS: Basophils # (auto) 0.1 10 ^3/uL (0-0.2); Eosinophils # (auto) 0.1 10 ^3/uL (0-0.8); Eosinophils % (auto) 1.1 % (0.0-7.0); Hematocrit 22.1 % (41.0-53.0); Hemoglobin 7.3 g/dL (13.5-17.5); Lymphocytes # (auto) 0.9 10 ^3/uL (0.4-5.4); Lymphocytes % (auto) 16.3 % (10.0-50.0); Mean Corpuscular Hemoglobin 29.2 pg (28.0-32.0); Mean Corpuscular Hgb Conc. 33.2 g/dL (32.0-36.0); Mean Corpuscular Volume 88.1 fL (80.0-100.0); Monocytes # (auto) 0.6 10 ^3/uL (0-1.3); Monocytes % (auto) 11.5 % (0.0-12.0); Neutrophils # (auto) 3.7 10 ^3/uL (1.6-8.6); Neutrophils % (auto) 69.1 % (37.0-80.0); Platelet Count (auto) 222 10^3/uL (140-450); Red Blood Cells 2.51 10^6/uL (4.5-5.90); Red Cell Distribution Width 14.8 % (11.8-14.3); White Blood Cell 5.3 10^3/uL (4.4-10.8)
[2024-04-20 04:15] LABS: Albumin 3.7 g/dL (3.2-4.8); Alkaline Phosphatase 82 U/L (46-116); Anion Gap 8 (5-15); Aspartate Aminotransferase 13 U/L (13-40); BUN/Creatinine Ratio 7.9 (10.0-20.0); Calcium 9.4 mg/dL (8.7-10.4); Carbon Dioxide 27 mmol/L (20-31); Chloride 100 mmol/L (98-107); Glucose 86 mg/dL (74-106); Magnesium 2.2 mg/dL (1.6-2.6); Potassium 3.6 mmol/L (3.5-5.1); Sodium 135 mmol/L (136-145)
[2024-04-20 04:16] LABS: Bilirubin, Total 0.2 mg/dL (0.2-1.0); Total Protein 5.8 g/dL (5.7-8.2)
[2024-04-20 04:25] LABS: Blood Urea Nitrogen 27 mg/dL (9-23)
[2024-04-20 04:26] LABS: Alanine Aminotransferase < 9 U/L (7-40)
[2024-04-20 09:57] LABS: INR 1.18 (0.9-1.15); Partial Thromboplastin Time 32.8 SEC (24.5-34.5); Prothrombin Time 12.4 sec (9.3-11.8)
[2024-04-20] MEDS ORDERED: HEPARIN SODIUM (PORCINE) 5000 UNITS/ML 1ML VIAL ONE (15:15)
[2024-04-20] MEDS ORDERED: LIDOCAINE 2%HCL (LOCAL ANESTH.) INJ 20ML MDV ONE (15:15)
== END 2024-04-20 20:50 | DRG 4 ==
LOC: ER 14:54 → EDBD 14:54 → EDUNIT# 21:58 → TELE 21:58 → MERGE 21:58 → TELE-CENTR 23:52 → ICU WEST 03-26 10:15
PROVIDERS: ADMIT Internal Medicine; ATTEND Internal Medicine
PROC: 5A1955Z Respiratory Ventilation, Greater than 96 Consecutive Hours (ICD-10-PCS; principal; 2024-03-26)
PROC: 0BH17EZ Insertion of Endotracheal Airway into Trachea, Via Natural or Artificial Opening (ICD-10-PCS; 2024-03-26)
PROC: 02HV33Z Insertion of Infusion Device into Superior Vena Cava, Percutaneous Approach (ICD-10-PCS; 2024-03-26)
PROC: B548ZZA Ultrasonography of Superior Vena Cava, Guidance (ICD-10-PCS; 2024-03-26)
PROC: 02HV33Z Insertion of Infusion Device into Superior Vena Cava, Percutaneous Approach (ICD-10-PCS; 2024-03-26)
PROC: B548ZZA Ultrasonography of Superior Vena Cava, Guidance (ICD-10-PCS; 2024-03-26)
PROC: 5A1D70Z Performance of Urinary Filtration, Intermittent, Less than 6 Hours Per Day (ICD-10-PCS; 2024-03-27)
PROC: 5A1D70Z Performance of Urinary Filtration, Intermittent, Less than 6 Hours Per Day (ICD-10-PCS; 2024-03-28)
PROC: 5A1D70Z Performance of Urinary Filtration, Intermittent, Less than 6 Hours Per Day (ICD-10-PCS; 2024-03-30)
PROC: 5A1D70Z Performance of Urinary Filtration, Intermittent, Less than 6 Hours Per Day (ICD-10-PCS; 2024-04-02)
PROC: 05H933Z Insertion of Infusion Device into Right Brachial Vein, Percutaneous Approach (ICD-10-PCS; 2024-04-03)
PROC: 5A1D70Z Performance of Urinary Filtration, Intermittent, Less than 6 Hours Per Day (ICD-10-PCS; 2024-04-04)
PROC: 5A1955Z Respiratory Ventilation, Greater than 96 Consecutive Hours (ICD-10-PCS; 2024-04-07)
PROC: 5A1D70Z Performance of Urinary Filtration, Intermittent, Less than 6 Hours Per Day (ICD-10-PCS; 2024-04-07)
PROC: 0BH17EZ Insertion of Endotracheal Airway into Trachea, Via Natural or Artificial Opening (ICD-10-PCS; 2024-04-07)
PROC: 0B9D8ZX Drainage of Right Middle Lung Lobe, Via Natural or Artificial Opening Endoscopic, Diagnostic (ICD-10-PCS; 2024-04-07)
PROC: 0BC78ZZ Extirpation of Matter from Left Main Bronchus, Via Natural or Artificial Opening Endoscopic (ICD-10-PCS; 2024-04-07)
PROC: 0BC38ZZ Extirpation of Matter from Right Main Bronchus, Via Natural or Artificial Opening Endoscopic (ICD-10-PCS; 2024-04-07)
PROC: 5A1D70Z Performance of Urinary Filtration, Intermittent, Less than 6 Hours Per Day (ICD-10-PCS; 2024-04-10)
PROC: 0B110F4 Bypass Trachea to Cutaneous with Tracheostomy Device, Open Approach (ICD-10-PCS; 2024-04-11)
PROC: 5A1D70Z Performance of Urinary Filtration, Intermittent, Less than 6 Hours Per Day (ICD-10-PCS; 2024-04-14)
PROC: 5A1D70Z Performance of Urinary Filtration, Intermittent, Less than 6 Hours Per Day (ICD-10-PCS; 2024-04-17)
PROC: 0YQ60ZZ Repair Left Inguinal Region, Open Approach (ICD-10-PCS; 2024-04-18)
PROC: 5A1D70Z Performance of Urinary Filtration, Intermittent, Less than 6 Hours Per Day (ICD-10-PCS; 2024-04-19)
PROC: 0JH63XZ Insertion of Tunneled Vascular Access Device into Chest Subcutaneous Tissue and Fascia, Percutaneous Approach (ICD-10-PCS; 2024-04-20)
PROC: 02H633Z Insertion of Infusion Device into Right Atrium, Percutaneous Approach (ICD-10-PCS; 2024-04-20)
PROC: B5181ZA Fluoroscopy of Superior Vena Cava using Low Osmolar Contrast, Guidance (ICD-10-PCS; 2024-04-20)
PROC: B548ZZA Ultrasonography of Superior Vena Cava, Guidance (ICD-10-PCS; 2024-04-20)
PROC: 0B9K8ZZ Drainage of Right Lung, Via Natural or Artificial Opening Endoscopic (ICD-10-PCS; 2024-04-20)
DX: A41.51 Sepsis due to Escherichia coli [E. coli] (principal); I21.A1 Myocardial infarction type 2; I50.43 Acute on chronic combined systolic (congestive) and diastolic (congestive) heart failure; J69.0 Pneumonitis due to inhalation of food and vomit; N17.0 Acute kidney failure with tubular necrosis; J96.01 Acute respiratory failure with hypoxia; R65.21 Severe sepsis with septic shock; N18.6 End stage renal disease; G92.8 Other toxic encephalopathy; J15.69 Pneumonia due to other Gram-negative bacteria; N39.0 Urinary tract infection, site not specified; Z16.12 Extended spectrum beta lactamase (ESBL) resistance; Z99.11 Dependence on respirator [ventilator] status; E87.20 Acidosis, unspecified; E87.3 Alkalosis; I82.621 Acute embolism and thrombosis of deep veins of right upper extremity; I13.2 Hypertensive heart and chronic kidney disease with heart failure and with stage 5 chronic kidney disease, or end stage renal disease; E87.1 Hypo-osmolality and hyponatremia; I48.92 Unspecified atrial flutter; G93.1 Anoxic brain damage, not elsewhere classified; E87.5 Hyperkalemia; D63.1 Anemia in chronic kidney disease; Z20.822 Contact with and (suspected) exposure to COVID-19; I27.21 Secondary pulmonary arterial hypertension; Y95 Nosocomial condition; R74.01 Elevation of levels of liver transaminase levels; E16.2 Hypoglycemia, unspecified; K40.90 Unilateral inguinal hernia, without obstruction or gangrene, not specified as recurrent; I48.0 Paroxysmal atrial fibrillation; K59.00 Constipation, unspecified; F15.10 Other stimulant abuse, uncomplicated; E87.6 Hypokalemia; D75.829 Heparin-induced thrombocytopenia, unspecified; E83.39 Other disorders of phosphorus metabolism; Z83.3 Family history of diabetes mellitus; Z80.42 Family history of malignant neoplasm of prostate; Z99.2 Dependence on renal dialysis
CPT/HCPCS: 31624; 36415; 36558; 36569; 36600; 70450; 71045; 71275; 74018; 74176; 76604; 76775; 76856; 76937; 77001; 80048; 80053; 80074; 80307; 81001; 82140; 82550; 82570; 82805; 82962; 83036; 83605; 83735; 83880; 83970; 84100; 84132; 84156; 84300; 84478; 84484; 85007; 85025; 85027; 85379; 85610; 85730; 86703; 86704; 86706; 86708; 86803; 86850; 86900; 86901; 87040; 87070; 87077; 87081; 87086; 87088; 87186; 87205; 87340; 87426; 87804; 90935; 92610; 93005; 93306; 93970; 94002; 94003; 94640; 96361; 96365; 96366; 96368; 96375; 99152; 99291; A4605; A4618; C1894; G0378; J0330; J1335; J1642; J1815; J1956; J2003; J2185; J2250; J2405; J2470; J2704; J3480; J3490; J7060; P9047; Q9967